=== PATIENT | female | born 1960 | race Caucasian/White ===

== ENCOUNTER → 2016-03-27 | Outpatient (CLI) | payer OTHER ==
[~2016-03-27] MED LIST: /ADVA50050 IN; /DULO30CA OR; /TIOT18INH; /TIOT18INH INH; ADV250INH INH; ALLE25CA OR; AMBI10TA OR; AMBI10TA PO; ASTELIN; ATIV0.5T3 PO; Albuterol Inhaler INH; CELE20TA OR; CETI10TA OR; Colace PO; NAPR250T OR; OMEP40CA2 PO; PLAQ200T PO; PLAQUNIL; PREG100CA OR; PREG50CA; PROV90AE; PROZ40CA; RANI75EL OR; SING10TA31 PO; TRAM50TA2 OR; TRAZ50TA OR; VICO5TAB OR; VICODINES TAB OR; ZANT150T OR; ZANT150T PO; plaquenil PO
--- NOTE | 2016-03-27 16:50 | REP ---
Chest two views HISTORY: Fatigue Comparison: 03/17/2015 The lungs are clear. The heart is normal in size. The pulmonary vasculature is normal in appearance. The bony structure is intact. IMPRESSION: No acute disease. Signed by Mc Mcgarry MD 03/27/2016 04:41 P
[2016-03-27 17:18] LABS: ALBUMIN 3.8 GM/DL (3.2-5.2); ALBUMIN/GLOBULIN RATIO 1.09 (1.00-1.93); ALKALINE PHOSPHATASE 133 U/L (45-117); ALT/SGPT 41 U/L (12-78); ANION GAP 8 MEQ/L (8-16); AST/SGOT 16 U/L (15-37); BILIRUBIN,TOTAL 0.4 MG/DL (0.2-1.0); BLOOD UREA NITROGEN 13 MG/DL (7-18); CALCIUM LEVEL 9.2 MG/DL (8.5-10.1); CARBON DIOXIDE LEVEL 24 MEQ/L (21-32); CHLORIDE LEVEL 110 MEQ/L (98-107); CHOLESTEROL LEVEL 253 MG/DL (<200); CREATININE FOR GFR 0.81 MG/DL (0.55-1.02); GLOMERULAR FILTRATION RATE > 60.0 (>51); GLUCOSE, FASTING 88 MG/DL (70-105); POTASSIUM SERUM 4.1 MEQ/L (3.5-5.1); SODIUM LEVEL 142 MEQ/L (136-145); TOTAL PROTEIN 7.3 GM/DL (6.4-8.2); TRIGLYCERIDES LEVEL 250 MG/DL (<150)
[2016-03-27 18:13] LABS: MEAN CORPUSCULAR HEMOGLOBIN 28.3 pg (27.0-33.0); MEAN CORPUSCULAR HGB CONC 33.7 g/dl (32.0-36.5); MEAN CORPUSCULAR VOLUME 84.1 fl (80.0-96.0); WHITE BLOOD COUNT 9.2 K/mm3 (4.0-10.0)
--- NOTE | 2016-03-28 09:48 | ECGEPIP ---
Stationary ECG Study [facility] Test Date: 2016-03-27 Pat Name: JENNIFER HOLLY Department: Room: - Gender: F Associate Store Director: DREW : 1960 Requested By: Miroslava Ceja Order Number: [id number] Reading MD: John New Measurements Intervals [place] Rate: 69 P: 29 MT: 142 QRS: 45 QRSD: 89 T: 56 QT: 388 QTc: 416 Interpretive Statements SINUS RHYTHM NONSPECIFIC T-WAVE ABNORMALITY Similar to tracing from 03-17-15 Electronically Signed On 03-28-2016 9:47:58 EST by John New
== END ==
LOC: M LAB 15:45
PROVIDERS: ATTEND Family Medicine
DX: R51 Headache (principal); R53.83 Other fatigue; E03.9 Hypothyroidism, unspecified

== ENCOUNTER → 2016-04-04 | Outpatient (CLI) | payer OTHER ==
--- NOTE | 2016-04-04 11:39 | REP ---
MRI BRAIN WITHOUT AND WITH CONTRAST: HISTORY: Headache. CONTRAST: ProHance 13 mL. Areas of increased signal intensity on T2-weighted images are present in the periventricular and subcortical white matter. This represents small vessel ischemic disease. There is no intraparenchymal hemorrhage, infarct, mass or midline shift. There is no abnormal enhancement. The ventricular system and cortical sulci are dilated consistent with minimal volume loss. There is no extracerebral collection. Mucosal thickening is present in the left maxillary sinus. IMPRESSION: 1. Small vessel ischemic disease. 2. Minimal volume loss. Signed by Mc Mcgarry MD 04/04/2016 11:53 A
== END ==
LOC: M RAD 10:17
PROVIDERS: ATTEND Family Medicine
DX: R51 Headache (principal); R53.83 Other fatigue; E03.9 Hypothyroidism, unspecified; H53.8 Other visual disturbances
CPT/HCPCS: 70553; A9576

== ENCOUNTER 2016-04-15 15:51 | Emergency (ER) | payer OTHER ==
[2016-04-15] MEDS ORDERED: ONDANSETRON 4MG/2ML VIAL (J2405) As Ordered ONE ×2 (19:01→23:09)
[2016-04-15] MEDS ORDERED: HYDROmorphone HCL 1 MG/ML SYRINGE (J1170) As Ordered ONE ×2 (19:01→23:07)
[2016-04-15 19:31] LABS: BASO # 0.2 K/mm3 (0.0-0.2); BASO % 1.7 % (0.0-1.0); EOS # 0.1 K/mm3 (0.0-0.50); EOS % 1.2 % (0.0-3.0); LARGE UNSTAINED CELL # 0.2 K/mm3 (0.0-0.4); LARGE UNSTAINED CELL % 1.3 % (0.0-4.0); LYMPH # 2.4 K/mm3 (1.5-4.5); LYMPH % 18.9 % (24.0-44.0); MEAN CORPUSCULAR HEMOGLOBIN 28.5 pg (27.0-33.0); MEAN CORPUSCULAR HGB CONC 33.2 g/dl (32.0-36.5); MEAN CORPUSCULAR VOLUME 85.7 fl (80.0-96.0); MONO # 0.3 K/mm3 (0.0-0.8); MONO % 2.7 % (0.0-5.0); NEUTROPHILS # 8.9 K/mm3 (1.8-7.7); NEUTROPHILS % 74.1 % (36.0-66.0); PLATELET COUNT, AUTOMATED 278 k/mm3 (150-450)
[2016-04-15 20:20] LABS: ALBUMIN 4.1 GM/DL (3.2-5.2); ALBUMIN/GLOBULIN RATIO 1.08 (1.00-1.93); ALKALINE PHOSPHATASE 153 U/L (45-117); ALT/SGPT 87 U/L (12-78); ANION GAP 10 MEQ/L (8-16); AST/SGOT 29 U/L (15-37); BILIRUBIN,DIRECT < 0.1 MG/DL (0.0-0.2); BILIRUBIN,TOTAL 0.3 MG/DL (0.2-1.0); BLOOD UREA NITROGEN 17 MG/DL (7-18); CALCIUM LEVEL 9.7 MG/DL (8.5-10.1); CARBON DIOXIDE LEVEL 28 MEQ/L (21-32); CHLORIDE LEVEL 106 MEQ/L (98-107); CREATININE FOR GFR 0.91 MG/DL (0.55-1.02); GLOMERULAR FILTRATION RATE > 60.0 (>51); GLUCOSE, FASTING 121 MG/DL (70-105); POTASSIUM SERUM 3.8 MEQ/L (3.5-5.1); SODIUM LEVEL 144 MEQ/L (136-145); TOTAL PROTEIN 7.9 GM/DL (6.4-8.2)
[2016-04-15] MEDS ORDERED: ISOVUE-370 76% 100ML VIAL (Q9967) As Ordered ONE (21:57)
--- NOTE | 2016-04-15 22:30 | REPUSA ---
CT of the abdomen and pelvis with contrast Clinical statement: Pain. Technique: Multiple axial CT images were obtained from the base of the lungs through the floor of the pelvis utilizing 5 mm axial slices after administration of nonionic intravenous contrast. Coronal an d sagittal reconstructions were also obtained. Comparison: 03/22/2015. Findings: Chest: The visualized lung bases are clear. Abdomen: The liver, spleen, pancreas, kidneys, gallbladder, and adrenal glands are unremarkable. Ther e is a stable simple 1 cm cyst in the left kidney. The aorta is within normal limits. There is no oni dence of abdominal lymphadenopathy or ascites. Pelvis: The bowel is unremarkable, with no obstructive or inflammatory changes. The appendix is harvey l. The urinary bladder is within normal limits. The other pelvic structures appear grossly intact. Th ere is no evidence of pelvic lymphadenopathy or ascites. Bones: There are no suspicious osseous abnormalities seen. Impression: Unremarkable CT examination of the abdomen and pelvis.
--- NOTE | 2016-04-16 00:38 | EDDOCDS ---
Physician Documentation [facility] Name: Laquita Howe Age: 55 yrs Sex: Female : 1960 Arrival Date: 04/15/2016 Time: 15:51 Bed I2 / M2 Private MD: Miroslava Evans Disposition: 04/16 00:22 Critical Care: Critical care not applicable. le Disposition: 04/16/16 00:20 Discharged to Home/Self Care. Impression: Noninfective gastroenteritis and colitis, unspecified. - Condition is Stable. - Discharge Instructions: Food Choices to Help Relieve Diarrhea, Adult, Viral Gastroenteritis. - Prescriptions for ZOFRAN ODT 4 mg - dissolve 1 tablet by ORAL route 4 times per day As needed do not chew, do not swallow whole; 10 tablet. - Medication Reconciliation, Work Release Form - 3 day, Local Pharmacy Hours form. - Follow up: Miroslava Evans; When: Call to arrange an appointment; Reason: Recheck today's complaints, Continuance of care. - Problem is new. - Symptoms have improved. - Notes: Keep hydrated by sipping on fluids frequently Return to the ED for any further concerns Historical: - Allergies: PENICILLINS (Anaphylaxis); Codeine Sulfate (Vomit, Upset stomach); SULFA (SULFONAMIDES) (Rash); - Home Meds: 1. cetirizine 10 mg oral tab 1 tab once daily 2. Xanax 1 mg Oral tab three times a day 3. hydrocodone-acetaminophen 7.5-325 mg oral tab every 4-6 hours prn 4. simvastatin 20 mg Oral tab 1 tab once daily - PMHx: Anxiety; Chronic Back pain; Diverticulosis; GERD; - PSHx: ; Hysterectomy; - Social history: Smoking status: Patient uses tobacco products, current every day smoker. No barriers to communication noted, The patient speaks fluent [place], Speaks appropriately for age. - Family history: Not pertinent. - : The pt / caregiver states he / she is not on anticoagulants. Home medication list is obtained from the patient. - Exposure Risk Screening:: None identified. Vital Signs: 04/15 15:53 BP 133 / 76; Pulse 93; Resp 18 S; Temp 97.8(O); Pulse Ox 99% on R/A; Weight 65.77 kg / gr2 145 lbs (R); Height 5 ft. 3 in. (160.02 cm) (R); Pain 9/10; 20:02 BP 124 / 71; Pulse 72; Resp 18; Temp 98.8; Pulse Ox 98% ; Pain 7/10; ajs 20:33 BP 114 / 69; Pulse 70; Resp 16; cz 23:46 BP 123 / 67; Pulse 62; Resp 16; Pulse Ox 99% ; Pain 7/10; mlc 04/16 00:35 BP 111 / 66; Pulse 73; Resp 18; Temp 98.1; Pulse Ox 97% ; Pain 7/10; mlc 04/15 15:53 Body Mass Index 25.69 (65.77 kg, 160.02 cm) gr2 MDM: 04/15 18:13 [facility] [place] Agreement was scanned into [employer] and attached to record. gb 18:45 Financial registration complete. gb 18:50 NS 0.9% 1000 ml IV at bolus once ordered. le 18:50 NS 0.9% 1000 ml IV at 100 mL/hr continuous ordered. le 18:51 Ondansetron 4 mg IVP once ordered. le 18:51 IV Saline Lock ordered. le 18:51 Undress patient appropriately for examination ordered. le 18:51 Dilaudid - HYDROmorphone 0.5 mg IVP once ordered. le 18:52 Basic Metabolic Profile Ordered. EDMS 18:52 CBC with Diff Ordered. EDMS 18:52 Lipase Ordered. EDMS 18:52 Liver Profile Ordered. EDMS 18:52 Urinalysis Ordered. EDMS 18:52 NOTHING BY MOUTH+DIET ordered. EDMS 18:53 GASTROINTESTINAL (GI) PANEL Ordered. EDMS 19:43 CBC with Diff Reviewed. le 20:39 Basic Metabolic Profile Reviewed. le 20:39 Liver Profile Reviewed. le 20:39 Lipase Reviewed. le 20:41 CT ABD & PELVIS: IV Contrast Only Ordered. EDMS 23:02 Dilaudid - HYDROmorphone 0.5 mg IVP once ordered. le 23:03 CT ABD & PELVIS: IV Contrast Only Reviewed. le 23:03 Fluid Challenge ordered. le 23:04 Urinalysis Reviewed. le 23:07 Ondansetron 4 mg IVP once ordered. le 04/16 00:20 GASTROINTESTINAL (GI) PANEL Reviewed. le Administered Medications: 04/15 19:20 Drug: NS 0.9% 1000 ml [sodium chloride 0.9 % intravenous solution] Route: IV; Rate: cz bolus; Site: left forearm; 19:27 Drug: Ondansetron 4 mg Route: IVP; Site: left forearm; cz 19:29 Drug: Dilaudid - HYDROmorphone 0.5 mg [hydromorphone 1 mg/mL injection syringe (0.5 cz mL)] Route: IVP; Site: left antecubital; 20:42 Drug: NS 0.9% 1000 ml [sodium chloride 0.9 % intravenous solution] Route: IV; Rate: 100 cz mL/hr; Site: left forearm; 23:16 Drug: Dilaudid - HYDROmorphone 0.5 mg [hydromorphone 1 mg/mL injection syringe (0.5 mlc mL)] Route: IVP; Site: left antecubital; 23:46 Follow up: BP 123 / 67; Pulse 62 bpm; Resp 16 bpm; Pulse Ox 99% ; Pain 7/10 Adult mlc 23:16 Drug: Ondansetron 4 mg [ondansetron HCl 2 mg/mL intravenous solution (2 mL)] Route: mlc IVP; Site: left antecubital; 23:46 Follow up: Response: Nausea is decreased [facility] [place] Signatures: Dispatcher [employer] Zandra Armenta, Jelani Burris RN, RN RN cz Christina Denis, Reg Reg gb Yola Peters, GRIZZLYMAN GRIZZLYMAN Nneka Sen RN RN [facility] [place] The chart was reviewed and I authenticate all verbal orders and agree with the evaluation and treatment provided.Attachments: 18:13 [facility] Payment Agreement gb MTDD
--- NOTE | 2016-04-16 00:38 | EDDOCDS ---
Nurse's Notes [facility] Name: Laquita Howe Age: 55 yrs Sex: Female : 1960 Arrival Date: 04/15/2016 Time: 15:51 Bed I2 / M2 Private MD: Miroslava Evans Diagnosis: Noninfective gastroenteritis and colitis, unspecified Presentation: 04/15 15:55 Presenting complaint: Patient states: sick for 2 weeks with sinus infection. nausea srm vomiting and diarrhea for 38 hours. doesn't stop. now just throwing up bile. c/o low back pain when vomiting. Adult Sepsis Screening: The patient does not have new or worsening altered mentation. Patient's respiratory rate is less than 22. Systolic blood pressure is greater than 100. Patient has a qSOFA score of 0- Negative Sepsis Screen. Suicide/Homicide risk assessment- the patient denies having any suicidal and/or homicidal ideations and does not present with any other emotional, behavioral or mental health complaints. Status: Patient is not a produce service team member or dependent. Transition of care: patient was not received from another setting of care. 15:55 Acuity: EMMETT Level 3 srm 15:55 Method Of Arrival: Wheelchair srm 15:58 Presenting complaint: Patient states: pain down legs- sometimes they go numb. srm Triage Assessment: 15:58 General: Appears in no apparent distress, Behavior is appropriate for age, cooperative. srm Pain: Pain currently is 10 out of 10 on a pain scale. HIV screening NA for this visit Offered previously. Historical: - Allergies: PENICILLINS (Anaphylaxis); Codeine Sulfate (Vomit, Upset stomach); SULFA (SULFONAMIDES) (Rash); - Home Meds: 1. cetirizine 10 mg oral tab 1 tab once daily 2. Xanax 1 mg Oral tab three times a day 3. hydrocodone-acetaminophen 7.5-325 mg oral tab every 4-6 hours prn 4. simvastatin 20 mg Oral tab 1 tab once daily - PMHx: Anxiety; Chronic Back pain; Diverticulosis; GERD; - PSHx: ; Hysterectomy; - Social history: Smoking status: Patient uses tobacco products, current every day smoker. No barriers to communication noted, The patient speaks fluent Rwandan, Speaks appropriately for age. - Family history: Not pertinent. - : The pt / caregiver states he / she is not on anticoagulants. Home medication list is obtained from the patient. - Exposure Risk Screening:: None identified. Screenin:42 Screening information is obtained from the patient. Fall risk: No risks identified. cz Assistance ADL's: requires no assistance with activities of daily living. Abuse/DV Screen: The patient / caregiver reports he/she is: not in a situation that causes fear, pain or injury. Nutritional screening: No deficits noted. home support is adequate. 04/16 00:35 Advance Directives: There is no active DNR order. mlc Assessment: 04/15 19:42 General: Appears distressed, uncomfortable, Behavior is appropriate for age, cz cooperative. Pain: Location: back and abdomen Pain currently is 8 out of 10 on a pain scale. GI: No deficits noted. Abdomen is obese, Bowel sounds hypoactive in right upper quadrant, left upper quadrant, right lower quadrant and left lower quadrant Abd is soft Abd is tender to palpation in umbilical area, right lower quadrant and left lower quadrant. 20:04 Reassessment: pt states abdominal discomfort a "little" better no vomiting. cz 20:33 Reassessment: pt continues to rest quietly with no vomiting and complaints of stomach cz discomfort. Adult Sepsis Screening: The patient does not have new or worsening altered mentation. Patient's respiratory rate is less than 22. Systolic blood pressure is greater than 100. Patient has a qSOFA score of 0- Negative Sepsis Screen. 22:21 Reassessment: pt continues to complain of stomach discomfort with no vomiting or cz retching pt provided with mouth swabs for complaint of dry mouth. 23:13 General: Appears in no apparent distress. General: pt and family updated on plan of ttb care. . Neurological: Level of Consciousness is awake, alert. Respiratory: No deficits noted. Airway is patent. Derm: Skin is normal. 23:16 General: Appears in no apparent distress, comfortable, Behavior is cooperative. mlc General: IV fluids infusing per order. pt given water per order. pt eating popsicle . Pain: Location: mid back area, umbilical area, right upper quadrant and left upper quadrant Pain currently is 8 out of 10 on a pain scale. Neurological: Level of Consciousness is awake, alert, obeys commands, Oriented to person, place, time. Respiratory: Airway is patent Respiratory effort is even, unlabored, Respiratory pattern is regular. Derm: Skin is normal. 23:46 Reassessment: Patient appears in no apparent distress at this time. no significant mlc changes since prior. pt reports slight decrease in nausea and pain. pt c/o hiccups. pt tolerating fluids well. . 04/16 00:35 General: Appears in no apparent distress, comfortable, Behavior is cooperative. Pain: [facility] Pain currently is 7 out of 10 on a pain scale. Neurological: Level of Consciousness is awake, alert, Oriented to person, place, time. Respiratory: Airway is patent Respiratory effort is even, unlabored, Respiratory pattern is regular. Derm: Skin is normal. Vital Signs: 04/15 15:53 BP 133 / 76; Pulse 93; Resp 18 S; Temp 97.8(O); Pulse Ox 99% on R/A; Weight 65.77 kg gr2 (R); Height 5 ft. 3 in. (160.02 cm) (R); Pain 9/10; 20:02 BP 124 / 71; Pulse 72; Resp 18; Temp 98.8; Pulse Ox 98% ; Pain 7/10; ajs 20:33 BP 114 / 69; Pulse 70; Resp 16; cz 23:46 BP 123 / 67; Pulse 62; Resp 16; Pulse Ox 99% ; Pain 7/10; mlc 04/16 00:35 BP 111 / 66; Pulse 73; Resp 18; Temp 98.1; Pulse Ox 97% ; Pain 7/10; mlc 04/15 15:53 Body Mass Index 25.69 (65.77 kg, 160.02 cm) gr2 Vitals: 04/15 15:53 Log In Time: April 15, 2016 at 15:53. gr2 ED Course: 15:52 Patient visited by Catherine Edwards. gr2 15:52 Miroslava Evans is Private Physician. gr2 15:52 Patient moved to Waiting gr2 15:54 Patient moved to Pre RCE gr2 15:57 Triage Initiated srm 17:50 Patient moved to Triage 3 srm 18:12 Patient name changed from Laquita\\S\\K\\S\\Lyndaker\\S\\ to Laquita\\S\\Marion\\S\\Lyndaker. EDMS 18:13 [facility] Payment Agreement was scanned into [employer] and attached to record. gb 18:40 Yola Peters FNP [facility] le 18:44 Patient visited by Yola Peters FNP. le 18:44 Patient visited by Yola Peters FNP. le 18:57 Patient moved to / M2 [facility] 19:39 Patient visited by Jelani Orozco, JIGNESH. cz 19:40 Basic Metabolic Profile Sent. cz 19:40 Lipase Sent. cz 19:40 Liver Profile Sent. cz 19:42 The patient / caregiver is instructed regarding the plan of care and ED course. cz 19:42 Inserted saline lock: 20 gauge in left forearm. No procedures done that require cz assistance. Labs drawn. Sent per order to lab. 20:03 Patient visited by Sharron Rodriguez. ajs 20:33 Patient visited by Jelani Orozco, JIGNESH. cz 21:40 Patient visited by Jelani Orozco, JIGNESH. cz 22:19 Patient visited by Jelani Orozco RN. cz 22:20 Urinalysis Sent. cz 22:36 CT ABD & PELVIS: IV Contrast Only Returned. EDMS 23:14 Patient visited by Arminda Cuello RN. ttb 23:18 Patient visited by Nneka Ortiz,JIGNESH. mlc 23:47 Patient visited by Nneka Ortiz RN. mlc 04/16 00:20 Miroslava Evans is Referral Physician. le 00:35 Discontinued IV lock intact, bleeding controlled, pressure dressing applied, No mlc redness/swelling at site. Administered Medications: 04/15 19:20 Drug: NS 0.9% 1000 ml [sodium chloride 0.9 % intravenous solution] Route: IV; Rate: cz bolus; Site: left forearm; 19:27 Drug: Ondansetron 4 mg Route: IVP; Site: left forearm; cz 19:29 Drug: Dilaudid - HYDROmorphone 0.5 mg [hydromorphone 1 mg/mL injection syringe (0.5 cz mL)] Route: IVP; Site: left antecubital; 20:42 Drug: NS 0.9% 1000 ml [sodium chloride 0.9 % intravenous solution] Route: IV; Rate: 100 cz mL/hr; Site: left forearm; 23:16 Drug: Dilaudid - HYDROmorphone 0.5 mg [hydromorphone 1 mg/mL injection syringe (0.5 mlc mL)] Route: IVP; Site: left antecubital; 23:46 Follow up: BP 123 / 67; Pulse 62 bpm; Resp 16 bpm; Pulse Ox 99% ; Pain 7/10 Adult [facility] 23:16 Drug: Ondansetron 4 mg [ondansetron HCl 2 mg/mL intravenous solution (2 mL)] Route: mlc IVP; Site: left antecubital; 23:46 Follow up: Response: Nausea is decreased [facility] Order Results: Lab Order: Basic Metabolic Profile; SPEC'M 04/15/16 19:12 Test: GLUCOSE, FASTING; Value: 121; Range: 70-105; Abnormal: Above high normal; Units: MG/DL; Status: F Test: BLOOD UREA NITROGEN; Value: 17; Range: 7-18; Units: MG/DL; Status: F Test: CREATININE FOR GFR; Value: 0.91; Range: 0.55-1.02; Units: MG/DL; Status: F Test: GLOMERULAR FILTRATION RATE; Value: > 60.0; Range: >51; Status: F Test: SODIUM LEVEL; Value: 144; Range: 136-145; Units: MEQ/L; Status: F Test: POTASSIUM SERUM; Value: 3.8; Range: 3.5-5.1; Units: MEQ/L; Status: F Test: CHLORIDE LEVEL; Value: 106; Range: 98-107; Units: MEQ/L; Status: F Test: CARBON DIOXIDE LEVEL; Value: 28; Range: 21-32; Units: MEQ/L; Status: F Test: ANION GAP; Value: 10; Range: 8-16; Units: MEQ/L; Status: F Test: CALCIUM LEVEL; Value: 9.7; Range: 8.5-10.1; Units: MG/DL; Status: F Test Note: ; Units are mL/min/1.73 m2 Chronic Kidney Disease Staging per NKF: Stage I & II GFR >=60 Normal to Mildly Decreased Stage III GFR 30-59 Moderately Decreased Stage IV GFR 15-29 Severely Decreased Stage V GFR <15 Very Little GFR Left ESRD GFR <15 on HORSE IDENTIFIER Lab Order: CBC with Diff; SPEC'M 04/15/16 19:12 Test: WHITE BLOOD COUNT; Value: 12.0; Range: 4.0-10.0; Abnormal: Above high normal; Units: K/mm3; Status: F Test: RED BLOOD COUNT; Value: 5.81; Range: 4.00-5.40; Abnormal: Above high normal; Units: M/mm3; Status: F Test: HEMOGLOBIN; Value: 16.5; Range: 12.0-16.0; Abnormal: Above high normal; Units: g/dl; Status: F Test: HEMATOCRIT; Value: 49.8; Range: 36.0-47.0; Abnormal: Above high normal; Units: %; Status: F Test: MEAN CORPUSCULAR VOLUME; Value: 85.7; Range: 80.0-96.0; Units: fl; Status: F Test: MEAN CORPUSCULAR HEMOGLOBIN; Value: 28.5; Range: 27.0-33.0; Units: pg; Status: F Test: MEAN CORPUSCULAR HGB CONC; Value: 33.2; Range: 32.0-36.5; Units: g/dl; Status: F Test: RED CELL DISTRIBUTION WIDTH; Value: 14.0; Range: 11.5-14.5; Units: %; Status: F Test: PLATELET COUNT, AUTOMATED; Value: 278; Range: 150-450; Units: k/mm3; Status: F Test: NEUTROPHILS %; Value: 74.1; Range: 36.0-66.0; Abnormal: Above high normal; Units: %; Status: F Test: LYMPH %; Value: 18.9; Range: 24.0-44.0; Abnormal: Below low normal; Units: %; Status: F Test: MONO %; Value: 2.7; Range: 0.0-5.0; Units: %; Status: F Test: EOS %; Value: 1.2; Range: 0.0-3.0; Units: %; Status: F Test: BASO %; Value: 1.7; Range: 0.0-1.0; Abnormal: Above high normal; Units: %; Status: F Test: LARGE UNSTAINED CELL %; Value: 1.3; Range: 0.0-4.0; Units: %; Status: F Test: NEUTROPHILS #; Value: 8.9; Range: 1.8-7.7; Abnormal: Above high normal; Units: K/mm3; Status: F Test: LYMPH #; Value: 2.4; Range: 1.5-4.5; Units: K/mm3; Status: F Test: MONO #; Value: 0.3; Range: 0.0-0.8; Units: K/mm3; Status: F Test: EOS #; Value: 0.1; Range: 0.0-0.50; Units: K/mm3; Status: F Test: BASO #; Value: 0.2; Range: 0.0-0.2; Units: K/mm3; Status: F Test: LARGE UNSTAINED CELL #; Value: 0.2; Range: 0.0-0.4; Units: K/mm3; Status: F Lab Order: Lipase; [facility] 04/15/16 19:12 Test: LIPASE; Value: 287; Range: 73-393; Units: U/L; Status: F Lab Order: Liver Profile; [facility] 04/15/16 19:12 Test: AST/SGOT; Value: 29; Range: 15-37; Units: U/L; Status: F Test: ALT/SGPT; Value: 87; Range: 12-78; Abnormal: Above high normal; Units: U/L; Status: F Test: ALKALINE PHOSPHATASE; Value: 153; Range: 45-117; Abnormal: Above high normal; Units: U/L; Status: F Test: BILIRUBIN,TOTAL; Value: 0.3; Range: 0.2-1.0; Units: MG/DL; Status: F Test: BILIRUBIN,DIRECT; Value: < 0.1; Range: 0.0-0.2; Units: MG/DL; Status: F Test: TOTAL PROTEIN; Value: 7.9; Range: 6.4-8.2; Units: GM/DL; Status: F Test: ALBUMIN; Value: 4.1; Range: 3.2-5.2; Units: GM/DL; Status: F Test: ALBUMIN/GLOBULIN RATIO; Value: 1.08; Range: 1.00-1.93; Status: F Lab Order: Urinalysis; [facility] 04/15/16 22:15 Test: APPEARANCE, URINE; Value: HAZY; Range: CLEAR; Status: F Test: COLOR, URINE; Value: YELLOW; Range: YELLOW; Status: F Test: PH,URINE; Value: 5.0; Range: 5.0-9.0; Units: UNITS; Status: F Test: SPECIFIC GRAVITY URINE AUTO; Value: 1.032; Range: 1.002-1.035; Status: F Test: PROTEIN, URINE AUTO; Value: NEGATIVE; Range: NEGATIVE; Units: mg/dL; Status: F Test: GLUCOSE, URINE (UA) AUTO; Value: NEGATIVE; Range: NEGATIVE; Units: mg/dL; Status: F Test: KETONE, URINE AUTO; Value: TRACE; Range: NEGATIVE; Abnormal: Above high normal; Units: mg/dL; Status: F Test: UROBILINOGEN, URINE AUTO; Value: 0.2; Range: 0.0-2.0; Units: mg/dL; Status: F Test: BILIRUBIN, URINE AUTO; Value: NEGATIVE; Range: NEGATIVE; Status: F Test: NITRITE, URINE AUTO; Value: NEGATIVE; Range: NEGATIVE; Status: F Test: LEUKOCYTE ESTERASE, URINE AUTO; Value: NEGATIVE; Range: NEGATIVE; Status: F Test: BLOOD, URINE BLOOD; Value: NEGATIVE; Range: NEGATIVE; Status: F Test: WBC, URINE AUTO; Value: 2; Range: 0-3; Units: /HPF; Status: F Test: RBC, URINE AUTO; Value: 0; Range: 0-3; Units: /HPF; Status: F Test: BACTERIA, URINE AUTO; Value: 1+; Range: NEGATIVE; Abnormal: Above high normal; Status: F Test: SQUAMOUS EPITHELIAL CELL UR AU; Value: 4; Range: 0-6; Units: /HPF; Status: F Test: MUCUS, URINE; Value: LARGE; Range: NEGATIVE; Status: F Test: HYALINE CAST, URINE AUTO; Value: 2; Range: 0-1; Units: /LPF; Status: F Lab Order: GASTROINTESTINAL (GI) PANEL; SPEC'M 04/15/16 21:54 Test: GASTROINTESTINAL (GI) PANEL; Value: GI PANEL RESULT NEGATIVE by PCR; Status: F Test: GASTROINTESTINAL (GI) PANEL; Value: Comments:; Status: F Test Note: ; This Gastrointestinal PCR Panel detects the following bacteria, parasites and viruses: Campylobacter (jejuni, coli and upsaliensis), Clostridium difficile (toxin A/B), Plesiomonas shigelloides, Salmonella, Yersinia enterocolitica, Vibrio (parahaemolyticus, vulnificus and cholerae), Vibrio clolerae, Enteroaggregative E. coli (EAEC), Enteropathogenis E. coli (EPEC), Enterotoxigenic E. coli (ETEC) it/st, Shiga-like producing E. coli (STEC) stx1/stc2, E.coli O157, Shigella/Enteroinvasive E. coli (EIEC), Cryptosporidium, Cyclospora cayetanensis, Entamoeba histolytica, Giardia lamblia, Adenovirus F 40/41, Astrovirus, Norovirus GI/GII, Rotavirus A and Sapovirus (I, II, IV, V). Radiology Order: CT ABD & PELVIS: IV Contrast Only Test: CT ABD & PELVIS: IV Contrast Only REASON FOR EXAMINATION: Abdomen Pain; ; CT of the abdomen and pelvis with contrast; Clinical statement: Pain.; Technique: Multiple axial CT images were obtained from the base of the lungs through the floor of the; pelvis utilizing 5 mm axial slices after administration of nonionic intravenous contrast. Coronal an; d sagittal reconstructions were also obtained.; Comparison: 03/22/2015.; Findings:; Chest: The visualized lung bases are clear.; Abdomen: The liver, spleen, pancreas, kidneys, gallbladder, and adrenal glands are unremarkable. Ther; e is a stable simple 1 cm cyst in the left kidney. The aorta is within normal limits. There is no oni; dence of abdominal lymphadenopathy or ascites.; Pelvis: The bowel is unremarkable, with no obstructive or inflammatory changes. The appendix is harvey; l. The urinary bladder is within normal limits. The other pelvic structures appear grossly intact. Th; ere is no evidence of pelvic lymphadenopathy or ascites.; Bones: There are no suspicious osseous abnormalities seen.; Impression: Unremarkable CT examination of the abdomen and pelvis.; ; Outcome: 04/16 00:20 Discharge ordered by Provider. le 00:35 Discharge Assessment: Patient awake, alert and oriented x 3. No cognitive and/or mlc functional deficits noted. Patient verbalized understanding of disposition instructions. patient administered narcotics - yes. Pt provided with safe discharge. The following High Risk Discharge criteria are identified: None. Discharged to home via wheelchair, with family. Condition: good Condition: stable. Discharge instructions given to patient, Instructed on discharge instructions, follow up and referral plans. medication usage, Demonstrated understanding of instructions, medications, Pt was receptive of discharge instructions/ teaching. Prescriptions given X 1, Work note provided to patient. CT Study completed. Property sent home with patient. 00:37 Patient left the ED. mlc Signatures: Dispatcher [employer] EDMS Zandra Pozo, RN RN Jelani Lee, RN RN Christina So, Deric Reg gb Yola Peters, SEAFOOD SPECIALIST Sharron Benitez JaneRN RN Arminda Cash RN RN Catherine Sharif gr2 Nneka OrtizRN RN mlc MTDD
--- NOTE | 2016-04-18 01:38 | EDDOCDS ---
Physician Documentation [facility] Name: Laquita Howe Age: 55 yrs Sex: Female : 1960 Arrival Date: 04/15/2016 Time: 15:51 Bed I2 / M2 Private MD: Miroslava Evans Disposition: 04/16 00:22 Critical Care: Critical care not applicable. le Disposition: 04/16/16 00:20 Discharged to Home/Self Care. Impression: Noninfective gastroenteritis and colitis, unspecified. - Condition is Stable. - Discharge Instructions: Food Choices to Help Relieve Diarrhea, Adult, Viral Gastroenteritis. - Prescriptions for ZOFRAN ODT 4 mg - dissolve 1 tablet by ORAL route 4 times per day As needed do not chew, do not swallow whole; 10 tablet. - Medication Reconciliation, Work Release Form - 3 day, Local Pharmacy Hours form. - Follow up: Miroslava Evans; When: Call to arrange an appointment; Reason: Recheck today's complaints, Continuance of care. - Problem is new. - Symptoms have improved. - Notes: Keep hydrated by sipping on fluids frequently Return to the ED for any further concerns Historical: - Allergies: PENICILLINS (Anaphylaxis); Codeine Sulfate (Vomit, Upset stomach); SULFA (SULFONAMIDES) (Rash); - Home Meds: 1. cetirizine 10 mg oral tab 1 tab once daily 2. Xanax 1 mg Oral tab three times a day 3. hydrocodone-acetaminophen 7.5-325 mg oral tab every 4-6 hours prn 4. simvastatin 20 mg Oral tab 1 tab once daily - PMHx: Anxiety; Chronic Back pain; Diverticulosis; GERD; - PSHx: ; Hysterectomy; - Social history: Smoking status: Patient uses tobacco products, current every day smoker. No barriers to communication noted, The patient speaks fluent Syrian, Speaks appropriately for age. - Family history: Not pertinent. - : The pt / caregiver states he / she is not on anticoagulants. Home medication list is obtained from the patient. - Exposure Risk Screening:: None identified. Vital Signs: 04/15 15:53 BP 133 / 76; Pulse 93; Resp 18 S; Temp 97.8(O); Pulse Ox 99% on R/A; Weight 65.77 kg / gr2 145 lbs (R); Height 5 ft. 3 in. (160.02 cm) (R); Pain 9/10; 20:02 BP 124 / 71; Pulse 72; Resp 18; Temp 98.8; Pulse Ox 98% ; Pain 7/10; ajs 20:33 BP 114 / 69; Pulse 70; Resp 16; cz 23:46 BP 123 / 67; Pulse 62; Resp 16; Pulse Ox 99% ; Pain 7/10; mlc 04/16 00:35 BP 111 / 66; Pulse 73; Resp 18; Temp 98.1; Pulse Ox 97% ; Pain 7/10; mlc 04/15 15:53 Body Mass Index 25.69 (65.77 kg, 160.02 cm) gr2 MDM: 04/15 18:13 [facility] Payment Agreement was scanned into [employer] and attached to record. gb 18:45 Financial registration complete. gb 18:50 NS 0.9% 1000 ml IV at bolus once ordered. le 18:50 NS 0.9% 1000 ml IV at 100 mL/hr continuous ordered. le 18:51 Ondansetron 4 mg IVP once ordered. le 18:51 IV Saline Lock ordered. le 18:51 Undress patient appropriately for examination ordered. le 18:51 Dilaudid - HYDROmorphone 0.5 mg IVP once ordered. le 18:52 Basic Metabolic Profile Ordered. EDMS 18:52 CBC with Diff Ordered. EDMS 18:52 Lipase Ordered. EDMS 18:52 Liver Profile Ordered. EDMS 18:52 Urinalysis Ordered. EDMS 18:52 NOTHING BY MOUTH+DIET ordered. EDMS 18:53 GASTROINTESTINAL (GI) PANEL Ordered. EDMS 19:43 CBC with Diff Reviewed. le 20:39 Basic Metabolic Profile Reviewed. le 20:39 Liver Profile Reviewed. le 20:39 Lipase Reviewed. le 20:41 CT ABD & PELVIS: IV Contrast Only Ordered. EDMS 23:02 Dilaudid - HYDROmorphone 0.5 mg IVP once ordered. le 23:03 CT ABD & PELVIS: IV Contrast Only Reviewed. le 23:03 Fluid Challenge ordered. le 23:04 Urinalysis Reviewed. le 23:07 Ondansetron 4 mg IVP once ordered. le 04/16 00:20 GASTROINTESTINAL (GI) PANEL Reviewed. le 11:43 T-Sheet-- Draft Copy was scanned into [employer] and attached to record. gb Administered Medications: 04/15 19:20 Drug: NS 0.9% 1000 ml [sodium chloride 0.9 % intravenous solution] Route: IV; Rate: cz bolus; Site: left forearm; 19:27 Drug: Ondansetron 4 mg Route: IVP; Site: left forearm; cz 19:29 Drug: Dilaudid - HYDROmorphone 0.5 mg [hydromorphone 1 mg/mL injection syringe (0.5 cz mL)] Route: IVP; Site: left antecubital; 20:42 Drug: NS 0.9% 1000 ml [sodium chloride 0.9 % intravenous solution] Route: IV; Rate: 100 cz mL/hr; Site: left forearm; 23:16 Drug: Dilaudid - HYDROmorphone 0.5 mg [hydromorphone 1 mg/mL injection syringe (0.5 mlc mL)] Route: IVP; Site: left antecubital; 23:46 Follow up: BP 123 / 67; Pulse 62 bpm; Resp 16 bpm; Pulse Ox 99% ; Pain 7/10 Adult mlc 23:16 Drug: Ondansetron 4 mg [ondansetron HCl 2 mg/mL intravenous solution (2 mL)] Route: mlc IVP; Site: left antecubital; 23:46 Follow up: Response: Nausea is decreased mlc Signatures: Dispatcher [employer] EDMS Zandra Pozo RN RN srm Zecher, Calvin, RN RN cz Christina Denis, Reg Reg Yola Barlow, STATION AGENT Nneka Najera RN RN [facility] The chart was reviewed and I authenticate all verbal orders and agree with the evaluation and treatment provided.Attachments: 18:13 [facility] Payment Agreement gb 04/16 11:43 T-Sheet-- Draft Copy gb Chart Complete MTDD
--- NOTE | 2016-04-18 01:38 | EDDOCDS ---
Nurse's Notes [facility] Name: Laquita Howe Age: 55 yrs Sex: Female : 1960 Arrival Date: 04/15/2016 Time: 15:51 Bed I2 / M2 Private MD: Miroslava Evans Diagnosis: Noninfective gastroenteritis and colitis, unspecified Presentation: 04/15 15:55 Presenting complaint: Patient states: sick for 2 weeks with sinus infection. nausea srm vomiting and diarrhea for 38 hours. doesn't stop. now just throwing up bile. c/o low back pain when vomiting. Adult Sepsis Screening: The patient does not have new or worsening altered mentation. Patient's respiratory rate is less than 22. Systolic blood pressure is greater than 100. Patient has a qSOFA score of 0- Negative Sepsis Screen. Suicide/Homicide risk assessment- the patient denies having any suicidal and/or homicidal ideations and does not present with any other emotional, behavioral or mental health complaints. Status: Patient is not a custodial services manager or dependent. Transition of care: patient was not received from another setting of care. 15:55 Acuity: EMMETT Level 3 srm 15:55 Method Of Arrival: Wheelchair srm 15:58 Presenting complaint: Patient states: pain down legs- sometimes they go numb. srm Triage Assessment: 15:58 General: Appears in no apparent distress, Behavior is appropriate for age, cooperative. srm Pain: Pain currently is 10 out of 10 on a pain scale. HIV screening NA for this visit Offered previously. Historical: - Allergies: PENICILLINS (Anaphylaxis); Codeine Sulfate (Vomit, Upset stomach); SULFA (SULFONAMIDES) (Rash); - Home Meds: 1. cetirizine 10 mg oral tab 1 tab once daily 2. Xanax 1 mg Oral tab three times a day 3. hydrocodone-acetaminophen 7.5-325 mg oral tab every 4-6 hours prn 4. simvastatin 20 mg Oral tab 1 tab once daily - PMHx: Anxiety; Chronic Back pain; Diverticulosis; GERD; - PSHx: ; Hysterectomy; - Social history: Smoking status: Patient uses tobacco products, current every day smoker. No barriers to communication noted, The patient speaks fluent Salvadorean, Speaks appropriately for age. - Family history: Not pertinent. - : The pt / caregiver states he / she is not on anticoagulants. Home medication list is obtained from the patient. - Exposure Risk Screening:: None identified. Screenin:42 Screening information is obtained from the patient. Fall risk: No risks identified. cz Assistance ADL's: requires no assistance with activities of daily living. Abuse/DV Screen: The patient / caregiver reports he/she is: not in a situation that causes fear, pain or injury. Nutritional screening: No deficits noted. home support is adequate. 04/16 00:35 Advance Directives: There is no active DNR order. mlc Assessment: 04/15 19:42 General: Appears distressed, uncomfortable, Behavior is appropriate for age, cz cooperative. Pain: Location: back and abdomen Pain currently is 8 out of 10 on a pain scale. GI: No deficits noted. Abdomen is obese, Bowel sounds hypoactive in right upper quadrant, left upper quadrant, right lower quadrant and left lower quadrant Abd is soft Abd is tender to palpation in umbilical area, right lower quadrant and left lower quadrant. 20:04 Reassessment: pt states abdominal discomfort a "little" better no vomiting. cz 20:33 Reassessment: pt continues to rest quietly with no vomiting and complaints of stomach cz discomfort. Adult Sepsis Screening: The patient does not have new or worsening altered mentation. Patient's respiratory rate is less than 22. Systolic blood pressure is greater than 100. Patient has a qSOFA score of 0- Negative Sepsis Screen. 22:21 Reassessment: pt continues to complain of stomach discomfort with no vomiting or cz retching pt provided with mouth swabs for complaint of dry mouth. 23:13 General: Appears in no apparent distress. General: pt and family updated on plan of ttb care. . Neurological: Level of Consciousness is awake, alert. Respiratory: No deficits noted. Airway is patent. Derm: Skin is normal. 23:16 General: Appears in no apparent distress, comfortable, Behavior is cooperative. mlc General: IV fluids infusing per order. pt given water per order. pt eating popsicle . Pain: Location: mid back area, umbilical area, right upper quadrant and left upper quadrant Pain currently is 8 out of 10 on a pain scale. Neurological: Level of Consciousness is awake, alert, obeys commands, Oriented to person, place, time. Respiratory: Airway is patent Respiratory effort is even, unlabored, Respiratory pattern is regular. Derm: Skin is normal. 23:46 Reassessment: Patient appears in no apparent distress at this time. no significant mlc changes since prior. pt reports slight decrease in nausea and pain. pt c/o hiccups. pt tolerating fluids well. . 04/16 00:35 General: Appears in no apparent distress, comfortable, Behavior is cooperative. Pain: [facility] Pain currently is 7 out of 10 on a pain scale. Neurological: Level of Consciousness is awake, alert, Oriented to person, place, time. Respiratory: Airway is patent Respiratory effort is even, unlabored, Respiratory pattern is regular. Derm: Skin is normal. Vital Signs: 04/15 15:53 BP 133 / 76; Pulse 93; Resp 18 S; Temp 97.8(O); Pulse Ox 99% on R/A; Weight 65.77 kg gr2 (R); Height 5 ft. 3 in. (160.02 cm) (R); Pain 9/10; 20:02 BP 124 / 71; Pulse 72; Resp 18; Temp 98.8; Pulse Ox 98% ; Pain 7/10; ajs 20:33 BP 114 / 69; Pulse 70; Resp 16; cz 23:46 BP 123 / 67; Pulse 62; Resp 16; Pulse Ox 99% ; Pain 7/10; mlc 04/16 00:35 BP 111 / 66; Pulse 73; Resp 18; Temp 98.1; Pulse Ox 97% ; Pain 7/10; mlc 04/15 15:53 Body Mass Index 25.69 (65.77 kg, 160.02 cm) gr2 Vitals: 04/15 15:53 Log In Time: April 15, 2016 at 15:53. gr2 ED Course: 15:52 Patient visited by Catherine Edwards. gr2 15:52 Miroslava Evans is Private Physician. gr2 15:52 Patient moved to Waiting gr2 15:54 Patient moved to Pre RCE gr2 15:57 Triage Initiated srm 17:50 Patient moved to Triage 3 srm 18:12 Patient name changed from Laquita\\S\\K\\S\\Lyndaker\\S\\ to Laquita\\S\\Marion\\S\\Lyndaker. EDMS 18:13 [facility] Payment Agreement was scanned into [employer] and attached to record. gb 18:40 [facility] FNP [facility] le 18:44 Patient visited by Yola Peters FNP. le 18:44 Patient visited by Yola Peters FNP. le 18:57 Patient moved to / M2 [facility] 19:39 Patient visited by Jelani Orozco, JIGNESH. cz 19:40 Basic Metabolic Profile Sent. cz 19:40 Lipase Sent. cz 19:40 Liver Profile Sent. cz 19:42 The patient / caregiver is instructed regarding the plan of care and ED course. cz 19:42 Inserted saline lock: 20 gauge in left forearm. No procedures done that require cz assistance. Labs drawn. Sent per order to lab. 20:03 Patient visited by Sharron Rodriguez. ajs 20:33 Patient visited by Jelani Orozco, JIGNESH. cz 21:40 Patient visited by Jelani Orozco, JIGNESH. cz 22:19 Patient visited by Jelani Orozco, JIGNESH. cz 22:20 Urinalysis Sent. cz 22:36 CT ABD & PELVIS: IV Contrast Only Returned. EDMS 23:14 Patient visited by Arminda Cuello, JIGNESH. ttb 23:18 Patient visited by Nneka Ortiz,JIGNESH. mlc 23:47 Patient visited by Nneka Ortiz,JIGNESH. mlc 04/16 00:20 Miroslava Evans is Referral Physician. le 00:35 Discontinued IV lock intact, bleeding controlled, pressure dressing applied, No mlc redness/swelling at site. 11:43 T-Sheet-- Draft Copy was scanned into [employer] and attached to record. gb Administered Medications: 04/15 19:20 Drug: NS 0.9% 1000 ml [sodium chloride 0.9 % intravenous solution] Route: IV; Rate: cz bolus; Site: left forearm; 19:27 Drug: Ondansetron 4 mg Route: IVP; Site: left forearm; cz 19:29 Drug: Dilaudid - HYDROmorphone 0.5 mg [hydromorphone 1 mg/mL injection syringe (0.5 cz mL)] Route: IVP; Site: left antecubital; 20:42 Drug: NS 0.9% 1000 ml [sodium chloride 0.9 % intravenous solution] Route: IV; Rate: 100 cz mL/hr; Site: left forearm; 23:16 Drug: Dilaudid - HYDROmorphone 0.5 mg [hydromorphone 1 mg/mL injection syringe (0.5 mlc mL)] Route: IVP; Site: left antecubital; 23:46 Follow up: BP 123 / 67; Pulse 62 bpm; Resp 16 bpm; Pulse Ox 99% ; Pain 7/10 Adult [facility] 23:16 Drug: Ondansetron 4 mg [ondansetron HCl 2 mg/mL intravenous solution (2 mL)] Route: mlc IVP; Site: left antecubital; 23:46 Follow up: Response: Nausea is decreased [facility] Order Results: Lab Order: Basic Metabolic Profile; SPEC'M 04/15/16 19:12 Test: GLUCOSE, FASTING; Value: 121; Range: 70-105; Abnormal: Above high normal; Units: MG/DL; Status: F Test: BLOOD UREA NITROGEN; Value: 17; Range: 7-18; Units: MG/DL; Status: F Test: CREATININE FOR GFR; Value: 0.91; Range: 0.55-1.02; Units: MG/DL; Status: F Test: GLOMERULAR FILTRATION RATE; Value: > 60.0; Range: >51; Status: F Test: SODIUM LEVEL; Value: 144; Range: 136-145; Units: MEQ/L; Status: F Test: POTASSIUM SERUM; Value: 3.8; Range: 3.5-5.1; Units: MEQ/L; Status: F Test: CHLORIDE LEVEL; Value: 106; Range: 98-107; Units: MEQ/L; Status: F Test: CARBON DIOXIDE LEVEL; Value: 28; Range: 21-32; Units: MEQ/L; Status: F Test: ANION GAP; Value: 10; Range: 8-16; Units: MEQ/L; Status: F Test: CALCIUM LEVEL; Value: 9.7; Range: 8.5-10.1; Units: MG/DL; Status: F Test Note: ; Units are mL/min/1.73 m2 Chronic Kidney Disease Staging per NKF: Stage I & II GFR >=60 Normal to Mildly Decreased Stage III GFR 30-59 Moderately Decreased Stage IV GFR 15-29 Severely Decreased Stage V GFR <15 Very Little GFR Left ESRD GFR <15 on CHANGE CONSULTANT Lab Order: CBC with Diff; SPEC'M 04/15/16 19:12 Test: WHITE BLOOD COUNT; Value: 12.0; Range: 4.0-10.0; Abnormal: Above high normal; Units: K/mm3; Status: F Test: RED BLOOD COUNT; Value: 5.81; Range: 4.00-5.40; Abnormal: Above high normal; Units: M/mm3; Status: F Test: HEMOGLOBIN; Value: 16.5; Range: 12.0-16.0; Abnormal: Above high normal; Units: g/dl; Status: F Test: HEMATOCRIT; Value: 49.8; Range: 36.0-47.0; Abnormal: Above high normal; Units: %; Status: F Test: MEAN CORPUSCULAR VOLUME; Value: 85.7; Range: 80.0-96.0; Units: fl; Status: F Test: MEAN CORPUSCULAR HEMOGLOBIN; Value: 28.5; Range: 27.0-33.0; Units: pg; Status: F Test: MEAN CORPUSCULAR HGB CONC; Value: 33.2; Range: 32.0-36.5; Units: g/dl; Status: F Test: RED CELL DISTRIBUTION WIDTH; Value: 14.0; Range: 11.5-14.5; Units: %; Status: F Test: PLATELET COUNT, AUTOMATED; Value: 278; Range: 150-450; Units: k/mm3; Status: F Test: NEUTROPHILS %; Value: 74.1; Range: 36.0-66.0; Abnormal: Above high normal; Units: %; Status: F Test: LYMPH %; Value: 18.9; Range: 24.0-44.0; Abnormal: Below low normal; Units: %; Status: F Test: MONO %; Value: 2.7; Range: 0.0-5.0; Units: %; Status: F Test: EOS %; Value: 1.2; Range: 0.0-3.0; Units: %; Status: F Test: BASO %; Value: 1.7; Range: 0.0-1.0; Abnormal: Above high normal; Units: %; Status: F Test: LARGE UNSTAINED CELL %; Value: 1.3; Range: 0.0-4.0; Units: %; Status: F Test: NEUTROPHILS #; Value: 8.9; Range: 1.8-7.7; Abnormal: Above high normal; Units: K/mm3; Status: F Test: LYMPH #; Value: 2.4; Range: 1.5-4.5; Units: K/mm3; Status: F Test: MONO #; Value: 0.3; Range: 0.0-0.8; Units: K/mm3; Status: F Test: EOS #; Value: 0.1; Range: 0.0-0.50; Units: K/mm3; Status: F Test: BASO #; Value: 0.2; Range: 0.0-0.2; Units: K/mm3; Status: F Test: LARGE UNSTAINED CELL #; Value: 0.2; Range: 0.0-0.4; Units: K/mm3; Status: F Lab Order: Lipase; [facility] 04/15/16 19:12 Test: LIPASE; Value: 287; Range: 73-393; Units: U/L; Status: F Lab Order: Liver Profile; [facility] 04/15/16 19:12 Test: AST/SGOT; Value: 29; Range: 15-37; Units: U/L; Status: F Test: ALT/SGPT; Value: 87; Range: 12-78; Abnormal: Above high normal; Units: U/L; Status: F Test: ALKALINE PHOSPHATASE; Value: 153; Range: 45-117; Abnormal: Above high normal; Units: U/L; Status: F Test: BILIRUBIN,TOTAL; Value: 0.3; Range: 0.2-1.0; Units: MG/DL; Status: F Test: BILIRUBIN,DIRECT; Value: < 0.1; Range: 0.0-0.2; Units: MG/DL; Status: F Test: TOTAL PROTEIN; Value: 7.9; Range: 6.4-8.2; Units: GM/DL; Status: F Test: ALBUMIN; Value: 4.1; Range: 3.2-5.2; Units: GM/DL; Status: F Test: ALBUMIN/GLOBULIN RATIO; Value: 1.08; Range: 1.00-1.93; Status: F Lab Order: Urinalysis; [facility] 04/15/16 22:15 Test: APPEARANCE, URINE; Value: HAZY; Range: CLEAR; Status: F Test: COLOR, URINE; Value: YELLOW; Range: YELLOW; Status: F Test: PH,URINE; Value: 5.0; Range: 5.0-9.0; Units: UNITS; Status: F Test: SPECIFIC GRAVITY URINE AUTO; Value: 1.032; Range: 1.002-1.035; Status: F Test: PROTEIN, URINE AUTO; Value: NEGATIVE; Range: NEGATIVE; Units: mg/dL; Status: F Test: GLUCOSE, URINE (UA) AUTO; Value: NEGATIVE; Range: NEGATIVE; Units: mg/dL; Status: F Test: KETONE, URINE AUTO; Value: TRACE; Range: NEGATIVE; Abnormal: Above high normal; Units: mg/dL; Status: F Test: UROBILINOGEN, URINE AUTO; Value: 0.2; Range: 0.0-2.0; Units: mg/dL; Status: F Test: BILIRUBIN, URINE AUTO; Value: NEGATIVE; Range: NEGATIVE; Status: F Test: NITRITE, URINE AUTO; Value: NEGATIVE; Range: NEGATIVE; Status: F Test: LEUKOCYTE ESTERASE, URINE AUTO; Value: NEGATIVE; Range: NEGATIVE; Status: F Test: BLOOD, URINE BLOOD; Value: NEGATIVE; Range: NEGATIVE; Status: F Test: WBC, URINE AUTO; Value: 2; Range: 0-3; Units: /HPF; Status: F Test: RBC, URINE AUTO; Value: 0; Range: 0-3; Units: /HPF; Status: F Test: BACTERIA, URINE AUTO; Value: 1+; Range: NEGATIVE; Abnormal: Above high normal; Status: F Test: SQUAMOUS EPITHELIAL CELL UR AU; Value: 4; Range: 0-6; Units: /HPF; Status: F Test: MUCUS, URINE; Value: LARGE; Range: NEGATIVE; Status: F Test: HYALINE CAST, URINE AUTO; Value: 2; Range: 0-1; Units: /LPF; Status: F Lab Order: GASTROINTESTINAL (GI) PANEL; SPEC'M 04/15/16 21:54 Test: GASTROINTESTINAL (GI) PANEL; Value: GI PANEL RESULT NEGATIVE by PCR; Status: F Test: GASTROINTESTINAL (GI) PANEL; Value: Comments:; Status: F Test Note: ; This Gastrointestinal PCR Panel detects the following bacteria, parasites and viruses: Campylobacter (jejuni, coli and upsaliensis), Clostridium difficile (toxin A/B), Plesiomonas shigelloides, Salmonella, Yersinia enterocolitica, Vibrio (parahaemolyticus, vulnificus and cholerae), Vibrio clolerae, Enteroaggregative E. coli (EAEC), Enteropathogenis E. coli (EPEC), Enterotoxigenic E. coli (ETEC) it/st, Shiga-like producing E. coli (STEC) stx1/stc2, E.coli O157, Shigella/Enteroinvasive E. coli (EIEC), Cryptosporidium, Cyclospora cayetanensis, Entamoeba histolytica, Giardia lamblia, Adenovirus F 40/41, Astrovirus, Norovirus GI/GII, Rotavirus A and Sapovirus (I, II, IV, V). Radiology Order: CT ABD & PELVIS: IV Contrast Only Test: CT ABD & PELVIS: IV Contrast Only REASON FOR EXAMINATION: Abdomen Pain; ; CT of the abdomen and pelvis with contrast; Clinical statement: Pain.; Technique: Multiple axial CT images were obtained from the base of the lungs through the floor of the; pelvis utilizing 5 mm axial slices after administration of nonionic intravenous contrast. Coronal an; d sagittal reconstructions were also obtained.; Comparison: 03/22/2015.; Findings:; Chest: The visualized lung bases are clear.; Abdomen: The liver, spleen, pancreas, kidneys, gallbladder, and adrenal glands are unremarkable. Ther; e is a stable simple 1 cm cyst in the left kidney. The aorta is within normal limits. There is no oni; dence of abdominal lymphadenopathy or ascites.; Pelvis: The bowel is unremarkable, with no obstructive or inflammatory changes. The appendix is harvey; l. The urinary bladder is within normal limits. The other pelvic structures appear grossly intact. Th; ere is no evidence of pelvic lymphadenopathy or ascites.; Bones: There are no suspicious osseous abnormalities seen.; Impression: Unremarkable CT examination of the abdomen and pelvis.; ; Outcome: 04/16 00:20 Discharge ordered by Provider. le 00:35 Discharge Assessment: Patient awake, alert and oriented x 3. No cognitive and/or mlc functional deficits noted. Patient verbalized understanding of disposition instructions. patient administered narcotics - yes. Pt provided with safe discharge. The following High Risk Discharge criteria are identified: None. Discharged to home via wheelchair, with family. Condition: good Condition: stable. Discharge instructions given to patient, Instructed on discharge instructions, follow up and referral plans. medication usage, Demonstrated understanding of instructions, medications, Pt was receptive of discharge instructions/ teaching. Prescriptions given X 1, Work note provided to patient. CT Study completed. Property sent home with patient. 00:37 Patient left the ED. mlc Signatures: Dispatcher [employer] EDMS Zandra Pozo, RN RN Jelani Lee RN RN Christina So, Reg Reg gb Fran, Yola, PROCESSING INSPECTOR PROCESSING INSPECTOR Sharron Chavez JaneRN RN Arminda Cash RN RN Catherine Sharif 2 Nneka OrtizRN RN mlc Chart Complete LIZZETH
--- NOTE | 2016-04-18 01:38 | EDDOCDS ---
Physician Documentation [facility] Name: Laquita Howe Age: 55 yrs Sex: Female : 1960 Arrival Date: 04/15/2016 Time: 15:51 Bed I2 / M2 Private MD: Miroslava Evans Disposition: 04/16 00:22 Critical Care: Critical care not applicable. le Disposition: 04/16/16 00:20 Discharged to Home/Self Care. Impression: Noninfective gastroenteritis and colitis, unspecified. - Condition is Stable. - Discharge Instructions: Food Choices to Help Relieve Diarrhea, Adult, Viral Gastroenteritis. - Prescriptions for ZOFRAN ODT 4 mg - dissolve 1 tablet by ORAL route 4 times per day As needed do not chew, do not swallow whole; 10 tablet. - Medication Reconciliation, Work Release Form - 3 day, Local Pharmacy Hours form. - Follow up: Miroslava Evans; When: Call to arrange an appointment; Reason: Recheck today's complaints, Continuance of care. - Problem is new. - Symptoms have improved. - Notes: Keep hydrated by sipping on fluids frequently Return to the ED for any further concerns Historical: - Allergies: PENICILLINS (Anaphylaxis); Codeine Sulfate (Vomit, Upset stomach); SULFA (SULFONAMIDES) (Rash); - Home Meds: 1. cetirizine 10 mg oral tab 1 tab once daily 2. Xanax 1 mg Oral tab three times a day 3. hydrocodone-acetaminophen 7.5-325 mg oral tab every 4-6 hours prn 4. simvastatin 20 mg Oral tab 1 tab once daily - PMHx: Anxiety; Chronic Back pain; Diverticulosis; GERD; - PSHx: ; Hysterectomy; - Social history: Smoking status: Patient uses tobacco products, current every day smoker. No barriers to communication noted, The patient speaks fluent Angolan, Speaks appropriately for age. - Family history: Not pertinent. - : The pt / caregiver states he / she is not on anticoagulants. Home medication list is obtained from the patient. - Exposure Risk Screening:: None identified. Vital Signs: 04/15 15:53 BP 133 / 76; Pulse 93; Resp 18 S; Temp 97.8(O); Pulse Ox 99% on R/A; Weight 65.77 kg / gr2 145 lbs (R); Height 5 ft. 3 in. (160.02 cm) (R); Pain 9/10; 20:02 BP 124 / 71; Pulse 72; Resp 18; Temp 98.8; Pulse Ox 98% ; Pain 7/10; ajs 20:33 BP 114 / 69; Pulse 70; Resp 16; cz 23:46 BP 123 / 67; Pulse 62; Resp 16; Pulse Ox 99% ; Pain 7/10; mlc 04/16 00:35 BP 111 / 66; Pulse 73; Resp 18; Temp 98.1; Pulse Ox 97% ; Pain 7/10; mlc 04/15 15:53 Body Mass Index 25.69 (65.77 kg, 160.02 cm) gr2 MDM: 04/15 18:13 [facility] Payment Agreement was scanned into [employer] and attached to record. gb 18:45 Financial registration complete. gb 18:50 NS 0.9% 1000 ml IV at bolus once ordered. le 18:50 NS 0.9% 1000 ml IV at 100 mL/hr continuous ordered. le 18:51 Ondansetron 4 mg IVP once ordered. le 18:51 IV Saline Lock ordered. le 18:51 Undress patient appropriately for examination ordered. le 18:51 Dilaudid - HYDROmorphone 0.5 mg IVP once ordered. le 18:52 Basic Metabolic Profile Ordered. EDMS 18:52 CBC with Diff Ordered. EDMS 18:52 Lipase Ordered. EDMS 18:52 Liver Profile Ordered. EDMS 18:52 Urinalysis Ordered. EDMS 18:52 NOTHING BY MOUTH+DIET ordered. EDMS 18:53 GASTROINTESTINAL (GI) PANEL Ordered. EDMS 19:43 CBC with Diff Reviewed. le 20:39 Basic Metabolic Profile Reviewed. le 20:39 Liver Profile Reviewed. le 20:39 Lipase Reviewed. le 20:41 CT ABD & PELVIS: IV Contrast Only Ordered. EDMS 23:02 Dilaudid - HYDROmorphone 0.5 mg IVP once ordered. le 23:03 CT ABD & PELVIS: IV Contrast Only Reviewed. le 23:03 Fluid Challenge ordered. le 23:04 Urinalysis Reviewed. le 23:07 Ondansetron 4 mg IVP once ordered. le 04/16 00:20 GASTROINTESTINAL (GI) PANEL Reviewed. le 11:43 T-Sheet-- Draft Copy was scanned into [employer] and attached to record. gb Administered Medications: 04/15 19:20 Drug: NS 0.9% 1000 ml [sodium chloride 0.9 % intravenous solution] Route: IV; Rate: cz bolus; Site: left forearm; 19:27 Drug: Ondansetron 4 mg Route: IVP; Site: left forearm; cz 19:29 Drug: Dilaudid - HYDROmorphone 0.5 mg [hydromorphone 1 mg/mL injection syringe (0.5 cz mL)] Route: IVP; Site: left antecubital; 20:42 Drug: NS 0.9% 1000 ml [sodium chloride 0.9 % intravenous solution] Route: IV; Rate: 100 cz mL/hr; Site: left forearm; 23:16 Drug: Dilaudid - HYDROmorphone 0.5 mg [hydromorphone 1 mg/mL injection syringe (0.5 mlc mL)] Route: IVP; Site: left antecubital; 23:46 Follow up: BP 123 / 67; Pulse 62 bpm; Resp 16 bpm; Pulse Ox 99% ; Pain 7/10 Adult mlc 23:16 Drug: Ondansetron 4 mg [ondansetron HCl 2 mg/mL intravenous solution (2 mL)] Route: mlc IVP; Site: left antecubital; 23:46 Follow up: Response: Nausea is decreased mlc Signatures: Dispatcher [employer] EDMS Zandra Pozo RN RN srm Zecher, Calvin, RN RN cz Christina Denis, Reg Reg Yola Barlow, [employer] CH[employer] BEAMER Nneka Najera RN RN [facility] The chart was reviewed and I authenticate all verbal orders and agree with the evaluation and treatment provided.Attachments: 18:13 [facility] Payment Agreement gb 04/16 11:43 T-Sheet-- Draft Copy gb Chart Complete MTDD
== END 2016-04-16 00:37 | disposition home or self-care (01) ==
LOC: M ED 15:51
DX: A08.4 Viral intestinal infection, unspecified (principal); F41.9 Anxiety disorder, unspecified; M54.9 Dorsalgia, unspecified; K57.30 Diverticulosis of large intestine without perforation or abscess without bleeding; K21.9 Gastro-esophageal reflux disease without esophagitis; F17.210 Nicotine dependence, cigarettes, uncomplicated; Z79.899 Other long term (current) drug therapy; Z88.0 Allergy status to penicillin; Z88.5 Allergy status to narcotic agent; Z88.2 Allergy status to sulfonamides
CPT/HCPCS: 36415; 74177; 80048; 80076; 81001; 83690; 85025; 87507; 99284; J1170; J2405; Q9967

== ENCOUNTER → 2016-07-23 | Outpatient (CLI) | payer OTHER ==
--- NOTE | 2016-07-24 11:51 | REP ---
MRI lumbar spine without contrast: History: Lumbar disc degeneration. Low back pain, bilateral leg pain. Right side greater than left. Comparison MRI study is from May 03, 2011. Technique: Sagittal and axial T1 and T2-weighted scans are acquired in the usual fashion with and without fat saturation. Sequences include spin echo, turbo spin-echo, and STIR imaging sequences. MRI findings: Lumbar vertebral body heights are preserved. Alignment is normal. Cortical and medullary bone signal intensity are normal. Conus medullaris is normal in position and appearance unchanged at T12-L1. There is a small central disc protrusion at T12-L1 which appears to be a new finding. This effaces the ventral subarachnoid space but does not contact or compress the conus. At L1-L2, there is no significant abnormality. At L2-3, the previously noted broad-based moderate-sized central disc protrusion is much improved. There is annulus tear but there is only mild diffuse disc bulging visible today subtly indenting the ventral margin of the thecal sac. No central canal stenosis is seen. Mild right lateral disc bulging is seen. At L3-4, there is mild diffuse disc bulging including mild foraminal disc bulging bilaterally unchanged. No significant neural foraminal narrowing. At L4-5, there is annulus tear with diffuse broad-based disc bulging. There is facet and mild ligamentum flavum hypertrophy bilaterally at L4-5 and there is mild central canal narrowing at L4-5 due to these findings along with developmentally fairly small canal. Mid sagittal dimension of the thecal sac at L4-5 is 11.7 mm. There is minimal left-sided neural foraminal encroachment. At L5-S1, there is mild facet hypertrophy bilaterally. Mild diffuse disc bulging is seen without thecal sac compression. A 1.9 cm perineural cyst is seen in the sacral thecal sac unchanged from the comparison study. There are small renal cysts again noted also unchanged. Impression: Degenerative spondylosis changes. There is improvement at the L2-3 level where previously noted disc protrusion has essentially resolved. No other focal disc protrusion is seen. Disc bulging and facet osteoarthritis is noted as above. Signed by Antonio Mo MD 07/24/2016 01:00 P
== END ==
LOC: M RAD 17:26
PROVIDERS: ATTEND Physical Medicine & Rehabilitation
DX: M51.16 Intervertebral disc disorders with radiculopathy, lumbar region (principal); M47.896 Other spondylosis, lumbar region

== ENCOUNTER 2017-05-26 16:03 | Emergency (ER) | payer OTHER ==
[2017-05-26 16:55] LABS: BASO % 0.3 % (0.0-1.0); EOS # 0.2 10^3/uL (0.0-0.50); EOS % 1.5 % (0.0-3.0); HEMOGLOBIN 12.5 g/dl (12.0-16.0); IMMATURE GRANULOCYTE % 0.6 % (0-3.0); LYMPH # 3.9 10^3/uL (1.5-4.5); LYMPH % 39.6 % (24.0-44.0); MEAN CORPUSCULAR HEMOGLOBIN 28.8 pg (27.0-33.0); MEAN CORPUSCULAR HGB CONC 33.8 g/dl (32.0-36.5); MEAN CORPUSCULAR VOLUME 85.3 fl (80.0-96.0); MONO # 0.6 10^3/uL (0.0-0.8); MONO % 6.1 % (0.0-5.0); NEUTROPHILS # 5.1 10^3/uL (1.8-7.7); NEUTROPHILS % 51.9 % (36.0-66.0); PLATELET COUNT, AUTOMATED 279 10^3/uL (150-450); RED BLOOD COUNT 4.34 10^6/uL (4.00-5.40); RED CELL DISTRIBUTION WIDTH 13.9 % (11.5-14.5); WHITE BLOOD COUNT 9.9 10^3/uL (4.0-10.0)
[2017-05-26 16:59] LABS: INR 0.83; PROTHROMBIN TIME 11.5 SECONDS (12.4-14.5)
[2017-05-26 17:04] LABS: ALBUMIN 3.1 GM/DL (3.2-5.2); ALBUMIN/GLOBULIN RATIO 0.94 (1.00-1.93); ALKALINE PHOSPHATASE 127 U/L (45-117); ALT/SGPT 259 U/L (12-78); ANION GAP 8 MEQ/L (8-16); AST/SGOT 218 U/L (7-37); BILIRUBIN,DIRECT < 0.1 MG/DL (0.0-0.2); BILIRUBIN,TOTAL 0.3 MG/DL (0.2-1.0); BLOOD UREA NITROGEN 24 MG/DL (7-18); CALCIUM LEVEL 9.1 MG/DL (8.5-10.1); CARBON DIOXIDE LEVEL 28 MEQ/L (21-32); CHLORIDE LEVEL 106 MEQ/L (98-107); CPK CREATINE PHOSPHOKINASE 62 U/L (26-192); CREATININE FOR GFR 1.04 MG/DL (0.55-1.30); GLOMERULAR FILTRATION RATE 57.9 (>51); GLUCOSE, FASTING 96 MG/DL (70-100); LIPASE 194 U/L (73-393); MB/CK RELATIVE INDEX 1.61 (< OR =4); NT-PRO BNP 78 PG/ML (<125); POTASSIUM SERUM 4.6 MEQ/L (3.5-5.1); SODIUM LEVEL 142 MEQ/L (136-145); TOTAL PROTEIN 6.4 GM/DL (6.4-8.2); TROPONIN I < 0.02 NG/ML (< 0.10)
[2017-05-26] MEDS ORDERED: ACETAMINOPHEN 325 MG TAB As Ordered (17:41)
[2017-05-26] MEDS: ACETAMINOPHEN 325 MG TAB PO (17:50)
[2017-05-26] MEDS: MORPHINE 4 MG/ML 1ML VIAL (J2270) IV ×2 (17:58→20:10)
[2017-05-26] MEDS: ONDANSETRON 4MG/2ML VIAL (J2405) IV (17:58)
[2017-05-26] MEDS ORDERED: ISOVUE-370 76% 100ML VIAL (Q9967) As Ordered (18:13)
[2017-05-26 18:20] LABS: MAGNESIUM LEVEL 1.7 MG/DL (1.8-2.4)
[2017-05-26 22:53] LABS: CPK CREATINE PHOSPHOKINASE 34 U/L (26-192); MB/CK RELATIVE INDEX 2.94 (< OR =4); TROPONIN I < 0.02 NG/ML (< 0.10)
[2017-05-27 09:23] LABS: HEPATITIS B SURFACE ANTIGEN NEGATIVE (NEGATIVE)
[2017-05-27 09:51] LABS: HEPATITIS C VIRUS ABY INDEX 0.1 INDEX (<0.8)
[2017-05-27 09:51] LABS: HEPATITIS B CORE ANTIBODY IGM NEGATIVE (NEGATIVE)
[2017-05-27 09:53] LABS: HEPATITIS A ANTIBODY IGM NEGATIVE (NEGATIVE)
== END 2017-05-27 00:05 | disposition home or self-care (01) ==
LOC: M ED 05-27 00:05
DX: R07.9 Chest pain, unspecified (principal); R94.31 Abnormal electrocardiogram [ECG] [EKG]; E78.5 Hyperlipidemia, unspecified; M32.9 Systemic lupus erythematosus, unspecified; M06.9 Rheumatoid arthritis, unspecified; F17.200 Nicotine dependence, unspecified, uncomplicated; Z82.49 Family history of ischemic heart disease and other diseases of the circulatory system; Z79.82 Long term (current) use of aspirin; Z79.899 Other long term (current) drug therapy; Z88.5 Allergy status to narcotic agent; Z88.0 Allergy status to penicillin; Z88.2 Allergy status to sulfonamides
CPT/HCPCS: J2270

== ENCOUNTER → 2018-07-12 | Outpatient (CLI) | payer OTHER ==
[~2018-07-12] MED LIST changes: -/ADVA50050 IN; -/DULO30CA OR; -/TIOT18INH; -/TIOT18INH INH; +ADVA1AER2 IN; +ASPI81TA85 PO; +CYCL10TA PO; +CYMB1CAP5 OR; +E-Z-GAS II EFFERVESCENT PACKET (SODIUM BICARB./CITRIC ACID/SIMETHICONE) As Ordered ONE; +E-Z-HD 98% w/w 340GM SUSP BTL As Ordered ONE; +E-Z-PAQUE 96% w/w SUSP 176GM BTL As Ordered ONE; +SPIR1CAP; +SPIR1CAP INH; +XANA1TAB2 PO; +ZOCO20TA PO
[2018-07-12 08:43] LABS: HEMATOCRIT 39.8 % (36.0-47.0); HEMOGLOBIN 13.1 g/dl (12.0-15.5); MEAN CORPUSCULAR HEMOGLOBIN 28.5 pg (27.0-33.0); MEAN CORPUSCULAR HGB CONC 32.9 g/dl (32.0-36.5); MEAN CORPUSCULAR VOLUME 86.7 fl (80.0-96.0); PLATELET COUNT, AUTOMATED 262 10^3/uL (150-450); RED BLOOD COUNT 4.59 10^6/uL (4.00-5.40); WHITE BLOOD COUNT 8.2 10^3/uL (4.0-10.0)
[2018-07-12 09:17] LABS: ALBUMIN 3.4 GM/DL (3.2-5.2); ALT/SGPT 26 U/L (12-78); AMYLASE 40 U/L (25-115); BILIRUBIN,TOTAL 0.3 MG/DL (0.2-1.0); BLOOD UREA NITROGEN 15 MG/DL (7-18); CALCIUM LEVEL 8.1 MG/DL (8.5-10.1); CARBON DIOXIDE LEVEL 27 MEQ/L (21-32); CHLORIDE LEVEL 110 MEQ/L (98-107); CHOLESTEROL LEVEL 166 MG/DL (<200); CHOLESTEROL RISK RATIO 2.515 (<5); CREATININE FOR GFR 0.94 MG/DL (0.55-1.30); GLOMERULAR FILTRATION RATE > 60.0 (>51); GLUCOSE, FASTING 106 MG/DL (70-100); HDL CHOLESTEROL 66 MG/DL (>40); LDL CHOLESTEROL 76 MG/DL (<100); NON-HDL-C 100 MG/DL; POTASSIUM SERUM 3.3 MEQ/L (3.5-5.1); SODIUM LEVEL 143 MEQ/L (136-145); TOTAL PROTEIN 6.3 GM/DL (6.4-8.2); TRIGLYCERIDES LEVEL 118 MG/DL (<150)
[2018-07-12 10:32] LABS: HEMOGLOBIN A1c 5.8 %
--- NOTE | 2018-07-13 04:30 | REP ---
Clinical: Upper quadrant abdominal pain. Technique: Gregorio scale ultrasound using curved array transducer. Findings: The liver and pancreas are normal in contour, size, and echogenicity without focal hepatic or pancreatic lesions identified. Mild fatty infiltration to the liver cannot be excluded. The gallbladder suggests early adenomyomatosis without gallstones, wall thickening or pericholecystic fluid. No biliary ductal dilatation is appreciated, and the common bile duct measures 2.8 mm diameter. The right kidney is without hydronephrosis and measures 9.6 x 5.1 x 4.2 cm with upper pole cyst measuring 1.2 cm mid pole cyst measuring 1.6 cm. No ascites. Visualized portions of the abdominal aorta normal. Impression: 1. Mild fatty infiltration to the liver cannot be excluded. 2. Early adenomyomatosis of the gallbladder. 3. Two simple appearing right renal cysts. Electronically Signed by Braeden Murcia MD 07/13/2018 04:23 A
--- NOTE | 2018-07-14 09:28 | REP ---
Examination Requested: Upper G.I. Series With KUB Reason For Exam: abdomen pain Upper GI Air Contrast The procedure was performed by SANJIV Elkins, under the direct supervision of Dr. Gregorio. The images were reviewed with Dr. Gregorio. The tube test technician film shows normal organomegaly or pathological masses. The intestinal gas pattern appears normal. Liquid barium and gas producing crystals were given tissue in the erect position as well as liquid barium in the prone position in order to perform a double contrast upper GI examination. The oral and pharyngeal stages of deglutition were unremarkable. Esophageal transport is efficient and there is no esophagitis, stricture, or mucosal ring noted. There there is a small hiatal hernia. No gastroesophageal reflux was visualized throughout the course of the exam. The stomach aguilera are normally outlined. The rugal folds are smooth and regular. There is no gastritis, neoplasm, ulcer disease noted. The duodenal aguilera are normally outlined. The mucosal folds are smooth and regular. There is no duodenitis, pancreatitis, peptic ulcer disease, or neoplasm noted. The visualized portion of the proximal small bowel appears normal in course and caliber. Impression; 1. Small hiatal hernia. 1.2 minutes of fluoroscopy time was utilized for this procedure. Reviewed by SANJIV Preston 07/13/2018 09:26 A Electronically Signed by Meek Gregorio MD 07/14/2018 09:19 A
== END ==
LOC: M RAD 08:17
PROVIDERS: ATTEND Family Medicine
DX: R10.9 Unspecified abdominal pain (principal); K44.9 Diaphragmatic hernia without obstruction or gangrene

== ENCOUNTER → 2018-08-17 | Outpatient (REF) | payer OTHER ==
[~2018-08-17] MED LIST changes: -E-Z-GAS II EFFERVESCENT PACKET (SODIUM BICARB./CITRIC ACID/SIMETHICONE) As Ordered ONE; -E-Z-HD 98% w/w 340GM SUSP BTL As Ordered ONE; -E-Z-PAQUE 96% w/w SUSP 176GM BTL As Ordered ONE
[2018-08-17 13:15] LABS: BASO # 0.1 10^3/uL (0.0-0.2); EOS # 0.2 10^3/uL (0.0-0.50); EOS % 2.9 % (0.0-3.0); HEMATOCRIT 44.5 % (36.0-47.0); HEMOGLOBIN 14.4 g/dl (12.0-15.5); LYMPH # 2.7 10^3/uL (1.5-4.5); LYMPH % 37.5 % (24.0-44.0); MEAN CORPUSCULAR HGB CONC 32.4 g/dl (32.0-36.5); MEAN CORPUSCULAR VOLUME 86.4 fl (80.0-96.0); MONO # 0.5 10^3/uL (0.0-0.8); MONO % 6.2 % (0.0-5.0); NEUTROPHILS # 3.8 10^3/uL (1.8-7.7); NEUTROPHILS % 52.3 % (36.0-66.0); PLATELET COUNT, AUTOMATED 250 10^3/uL (150-450); RED BLOOD COUNT 5.15 10^6/uL (4.00-5.40); WHITE BLOOD COUNT 7.3 10^3/uL (4.0-10.0)
[2018-08-17 13:34] LABS: ALT/SGPT 51 U/L (12-78); BILIRUBIN,TOTAL 0.2 MG/DL (0.2-1.0); BLOOD UREA NITROGEN 13 MG/DL (7-18); CALCIUM LEVEL 9.8 MG/DL (8.5-10.1); CARBON DIOXIDE LEVEL 26 MEQ/L (21-32); CHLORIDE LEVEL 108 MEQ/L (98-107); COMPLEMENT C3 144 MG/DL (90-180); COMPLEMENT C4 40 MG/DL (10-40); CREATININE FOR GFR 0.94 MG/DL (0.55-1.30); GLOMERULAR FILTRATION RATE > 60.0 (>51); GLUCOSE, FASTING 92 MG/DL (70-100); POTASSIUM SERUM 4.2 MEQ/L (3.5-5.1); RHEUMATOID FACTOR QUANT < 10.0 IU/ML (<15.0); SODIUM LEVEL 141 MEQ/L (136-145); TOTAL PROTEIN 7.4 GM/DL (6.4-8.2)
[2018-08-17 13:42] LABS: ERYTHROCYTE SEDIMENTATION RATE 11 mm/hr (0-30)
[2018-08-20 15:46] LABS: ANA (HEP2) Positive (.); ANTI DS-DNA AB <1:10 titer (.); CYCLIC CITRULLINATED PEPTIDE 6 units (0-19); RNP ANTIBODY < 0.2 AI (0.0-0.9); SMITHS ANTIBODY < 0.2 AI (0.0-0.9); SSA SJOGRENS A 7.7 AI (0.0-0.9); SSB SJOGRENS B <0.2 AI (0.0-0.9)
== END ==
LOC: M SFHCPLAZ 10:57
PROVIDERS: ATTEND Internal Medicine Rheumatology
DX: M35.00 Sjogren syndrome, unspecified (principal); M32.9 Systemic lupus erythematosus, unspecified; M06.9 Rheumatoid arthritis, unspecified

== ENCOUNTER → 2018-09-06 | Outpatient (CLI) | payer OTHER ==
--- NOTE | 2018-09-06 14:55 | REP ---
Clinical: Knee pain. Technique: Single AP weightbearing view of the right and left knee. Findings: Bilateral knees appear symmetric and age appropriate. No significant osteoarthritic or inflammatory arthritic changes are appreciated. Impression: Age-appropriate symmetric knee radiographs. Electronically Signed by Braeden Murcia MD 09/06/2018 02:46 P
--- NOTE | 2018-09-06 14:55 | REP ---
Clinical: Pain extending to the left upper extremity. Technique: AP, lateral, flexion/extension, bilateral oblique and open mouth views of the cervical spine. Findings: Alignment and lordosis maintained. No acute fracture / compression injury or subluxation. Moderate multilevel degenerative disc osteophyte complexes are appreciated primarily involving C4-5 and C5-6. C1-C2 articulation and odontoid process appear normal. Neural foramen are patent. Impression: Moderate multilevel degenerative changes. Electronically Signed by Braeden Murcia MD 09/06/2018 02:46 P
== END ==
LOC: M RAD 14:11
PROVIDERS: ATTEND Internal Medicine Rheumatology
DX: M25.561 Pain in right knee (principal); M25.78 Osteophyte, vertebrae

== ENCOUNTER → 2018-09-06 | Outpatient (REF) | payer OTHER ==
[2018-09-06 14:46] LABS: APPEARANCE, URINE HAZY (CLEAR); BACTERIA, URINE AUTO 1+ (NEGATIVE); BILIRUBIN, URINE AUTO NEGATIVE (NEGATIVE); BLOOD, URINE BLOOD NEGATIVE (NEGATIVE); COLOR, URINE YELLOW (YELLOW); GLUCOSE, URINE (UA) AUTO NEGATIVE (NEGATIVE); KETONE, URINE AUTO NEGATIVE (NEGATIVE); LEUKOCYTE ESTERASE, URINE AUTO NEGATIVE (NEGATIVE); MUCUS, URINE SMALL (NEGATIVE); NITRITE, URINE AUTO NEGATIVE (NEGATIVE); PROTEIN, URINE AUTO NEGATIVE (NEGATIVE); RBC, URINE AUTO 1 /HPF (0-3); SQUAMOUS EPITHELIAL CELL UR AU 8 /HPF (0-6); UROBILINOGEN, URINE AUTO 0.2 mg/dL (0.0-2.0); WBC, URINE AUTO 3 /HPF (0-3)
[2018-09-06 15:05] LABS: TOTAL PROTEIN,RANDOM URINE 16.3 MG/DL (0.0-12.0)
== END ==
LOC: M LAB REF 14:12
PROVIDERS: ATTEND Internal Medicine Rheumatology
DX: M35.00 Sjogren syndrome, unspecified (principal)

== ENCOUNTER → 2018-09-07 | Outpatient (CLI) | payer OTHER ==
--- NOTE | 2018-09-07 14:16 | REP ---
Ultrasound of a palpable soft tissue medially in the right calf area: Ultrasonography of the palpable lump identifies a solid echogenic mass measuring 13.0 x 6 performed by 8.7 mm. This is well circumscribed. Doppler assessment there is no internal vascularity. Impression: The palpable lump corresponds to a solid mass, possibly a lipoma. Followup MRI or CT might be worthwhile to confirm lipoma. Electronically Signed by Meek Osborne MD 09/07/2018 02:07 P
== END ==
LOC: M RAD 12:50
PROVIDERS: ATTEND Physician Assistant
DX: R22.9 Localized swelling, mass and lump, unspecified (principal)

== ENCOUNTER 2018-10-25 05:21 | Inpatient (IN) | payer OTHER ==
[~2018-10-25] VITALS: Ht 160 cm; Wt 70.5 kg
[2018-10-25] MEDS: D5W/0.45% SODIUM CHLORIDE 1,000 ML IV SCH ×3 (02:00→12:29)
[2018-10-25] MEDS ORDERED: METOCLOPRAMIDE INJ 10MG/2ML VIAL (J2765) IV ONE (05:45)
[2018-10-25] MEDS ORDERED: MORPHINE 4 MG/ML 1ML VIAL/SYRINGE (J2270) IV ONE (06:00)
[2018-10-25] MEDS ORDERED: NS 1,000 ML IV ONE (06:00)
[2018-10-25 06:37] LABS: BASO % 0.6 % (0.0-1.0); EOS # 0.2 10^3/uL (0.0-0.50); EOS % 3.7 % (0.0-3.0); HEMATOCRIT 38.8 % (36.0-47.0); HEMOGLOBIN 12.6 g/dl (12.0-15.5); LYMPH # 1.9 10^3/uL (1.5-4.5); LYMPH % 36.1 % (24.0-44.0); MEAN CORPUSCULAR HGB CONC 32.5 g/dl (32.0-36.5); MEAN CORPUSCULAR VOLUME 86.2 fl (80.0-96.0); MONO # 0.3 10^3/uL (0.0-0.8); MONO % 6.6 % (0.0-5.0); NEUTROPHILS # 2.7 10^3/uL (1.8-7.7); NEUTROPHILS % 52.8 % (36.0-66.0); PLATELET COUNT, AUTOMATED 219 10^3/uL (150-450); WHITE BLOOD COUNT 5.1 10^3/uL (4.0-10.0)
[2018-10-25 07:01] LABS: ALBUMIN 3.2 GM/DL (3.2-5.2); ALT/SGPT 31 U/L (12-78); BILIRUBIN,DIRECT < 0.1 MG/DL (0.0-0.2); BILIRUBIN,TOTAL 0.3 MG/DL (0.2-1.0); BLOOD UREA NITROGEN 14 MG/DL (7-18); CALCIUM LEVEL 9.2 MG/DL (8.5-10.1); CARBON DIOXIDE LEVEL 24 MEQ/L (21-32); CHLORIDE LEVEL 110 MEQ/L (98-107); CREATININE FOR GFR 0.83 MG/DL (0.55-1.30); GLOMERULAR FILTRATION RATE > 60.0 (>51); GLUCOSE, FASTING 108 MG/DL (70-100); LIPASE 93 U/L (73-393); POTASSIUM SERUM 4.8 MEQ/L (3.5-5.1); SODIUM LEVEL 142 MEQ/L (136-145); TOTAL PROTEIN 6.6 GM/DL (6.4-8.2)
[2018-10-25] MEDS: GASTROGRAFIN SOLUTION 30ML PO SCH ×2 (07:38→08:19)
[2018-10-25] MEDS ORDERED: VITA500045 PO (07:41)
[2018-10-25] MEDS ORDERED: LEVO75TA4 PO (07:41)
[2018-10-25] MEDS ORDERED: SUCR1TAB56 PO (07:41)
[2018-10-25] MEDS ORDERED: VENTAER INH (07:41)
[2018-10-25] MEDS ORDERED: ONDA4TAB5 PO (07:41)
[2018-10-25] MEDS ORDERED: ISOVUE-370 76% 100ML VIAL (Q9967) As Ordered ONE (07:49)
[2018-10-25] MEDS ORDERED: KETOROLAC 30 MG/ML VIAL (J1885) IV ONE ×2 (09:45→22:45)
--- NOTE | 2018-10-25 10:15 | REP ---
REASON: Left lower quadrant pain. COMPARISON: 04/15/2016 CONTRAST: 100 mL Isovue 370. Bibasilar subsegmental atelectatic changes are present. There are no pleural or pericardial effusions. The liver, gallbladder, spleen, pancreas, adrenal glands, and kidneys are essentially unchanged and again seen within normal limits. There is a minimal stable left renal cyst. The abdominal aorta and para-aortic regions are within normal limits. Minimal faint infiltration is seen surrounding the distal descending colon representing a change from the prior exam. There is no free fluid or free air. There is no intra-abdominal mass or adenopathy. The appendix is unchanged and again seen within normal limits. There is, however, a tiny amount of fluid in the mesoappendix. CT PELVIS: There is no pelvic mass or adenopathy. The pelvis bowel loops are within normal limits. Bone window technique through the examination shows no significant appearance in the osseous structures. IMPRESSION: 1. There is evidence of mild, either early or resolving descending colon focal colitis/diverticulitis. Followup is suggested. 2. The appendix is of normal size and unchanged, in fact, when compared to 04/15/2016, however, there is a tiny amount of fluid in the mesoappendix which could potentially raise the question of early appendicitis. This needs to be correlated clinically with appropriate followup. Electronically Signed by Rory Hernandez DO 10/25/2018 12:26 P
[2018-10-25] MEDS ORDERED: ADV250INH INH (11:30)
[2018-10-25] MEDS ORDERED: RANI15TA PO (11:30)
[2018-10-25] MEDS ORDERED: GING1CAP PO (11:30)
[2018-10-25] MEDS ORDERED: HYDR-4514 PO (11:30)
[2018-10-25] MEDS ORDERED: CETI10TA4 PO (11:30)
[2018-10-25] MEDS ORDERED: SIMV20TA2 PO (11:30)
[2018-10-25] MEDS ORDERED: ECOT81TA5 PO (11:30)
[2018-10-25] MEDS ORDERED: RA T500C2 PO (11:30)
[2018-10-25] MEDS: CIPROFLOXACIN 400 MG in APPROPRIATE DILUENT 1 EA IV SCH ×3 (11:51→23:43)
[2018-10-25 13:00] VITALS: BP 112/60
[2018-10-25] MEDS: metroNIDAZOLE 500 MG in APPROPRIATE DILUENT 1 EA IV SCH ×2 (14:33→21:16)
[2018-10-25] MEDS ORDERED: ALBUTEROL 90 MCG/ACT 8GM HFA INHALER INH PRN (15:15)
[2018-10-25 17:15] VITALS: BP 103/58
[2018-10-25] MEDS ORDERED: NON-FORMULARY 1 EA EA INH SCH (21:00)
[2018-10-25] MEDS: CETIRIZINE (ZyrTEC) 10 MG TAB PO SCH (21:05)
[2018-10-25] MEDS: ALPRAZolam 0.5 MG TAB PO PRN (21:05)
[2018-10-25] MEDS: ASPIRIN 81 MG ENTERIC TAB PO SCH (21:05)
[2018-10-25] MEDS: SIMVASTATIN 20 MG TAB PO SCH (21:05)
[2018-10-25] MEDS: CYCLOBENZAPRINE 10 MG TAB PO PRN (21:16)
[2018-10-25] MEDS: ADVAIR HFA 115/21MCG INHALER INH SCH (21:50)
[2018-10-26] VITALS: BP 97/52
[2018-10-26] MEDS: LEVOTHYROXINE 75MCG TABLET (0.075MG) PO SCH (05:56)
[2018-10-26] MEDS: metroNIDAZOLE 500 MG in APPROPRIATE DILUENT 1 EA IV SCH ×3 (05:56→20:42)
[2018-10-26 07:07] LABS: BASO % 0.6 % (0.0-1.0); EOS # 0.2 10^3/uL (0.0-0.50); EOS % 3.5 % (0.0-3.0); HEMATOCRIT 37.6 % (36.0-47.0); HEMOGLOBIN 12.1 g/dl (12.0-15.5); MEAN CORPUSCULAR HEMOGLOBIN 28.8 pg (27.0-33.0); MEAN CORPUSCULAR HGB CONC 32.2 g/dl (32.0-36.5); MEAN CORPUSCULAR VOLUME 89.5 fl (80.0-96.0); MONO # 0.4 10^3/uL (0.0-0.8); MONO % 5.8 % (0.0-5.0); NEUTROPHILS # 3.7 10^3/uL (1.8-7.7); NEUTROPHILS % 57.8 % (36.0-66.0); PLATELET COUNT, AUTOMATED 210 10^3/uL (150-450); WHITE BLOOD COUNT 6.4 10^3/uL (4.0-10.0)
[2018-10-26 07:35] LABS: ALBUMIN 2.9 GM/DL (3.2-5.2); ALT/SGPT 25 U/L (12-78); BILIRUBIN,TOTAL 0.1 MG/DL (0.2-1.0); BLOOD UREA NITROGEN 10 MG/DL (7-18); CALCIUM LEVEL 8.1 MG/DL (8.5-10.1); CARBON DIOXIDE LEVEL 24 MEQ/L (21-32); CHLORIDE LEVEL 113 MEQ/L (98-107); CREATININE FOR GFR 0.85 MG/DL (0.55-1.30); GLOMERULAR FILTRATION RATE > 60.0 (>51); GLUCOSE, FASTING 126 MG/DL (70-100); POTASSIUM SERUM 3.5 MEQ/L (3.5-5.1); SODIUM LEVEL 144 MEQ/L (136-145); TOTAL PROTEIN 6.2 GM/DL (6.4-8.2)
[2018-10-26] MEDS: ADVAIR HFA 115/21MCG INHALER INH SCH ×2 (07:43→20:56)
[2018-10-26 08:00] VITALS: BP 110/64
[2018-10-26] MEDS ORDERED: BISACODYL 10 MG SUPP PR ONE (09:00)
--- NOTE | 2018-10-26 09:36 | HPE ---
DATE OF ADMISSION: 10/25/2018 CHIEF COMPLAINT: Abdominal pain, nausea. HISTORY OF PRESENT ILLNESS: This is a 58-year-old female who presented to the emergency room with stomachache that started 2 weeks ago. It has progressed on to become much more severe since Thursday with complaints of epigastric, left upper quadrant, left lower quadrant pain with radiation to the left shoulder without fever or chills, accompanied with anorexia. Episodes of nausea without vomiting and alleviated by six tablets of ibuprofen, two tablets throughout the day. The patient was at work on Thursday when she felt dizzy and felt that everything was spinning around her. She told her boss that her stomach was "killing me," and felt nauseous. She had not been eating anything. She was seen at her doctor's office and was given Zofran with no resolution of her nausea. She has had about a 5 to 10 pound weight loss since due to a decrease in appetite and fair eating and drinking. The patient says that she does not feel hungry and she is afraid that if she eats something that she is going to throw up. She denies any diarrhea, bloody stools. She does admit to feeling subjective fevers at home without any chills. Her children have noted that she was sweating with just walking around the house and doing nothing. She says "it is because I do not feel good." The patient describes the pain as achy and bothersome on and off, but has been much more constant since Thursday. She has noted a decrease in urine output, as well as very concentrated, dark yellow-orange urine for the past 3 days. Her last meal was Thursday. It was a sub at [facility]. Since then, she really has not eaten much. Prior evaluation was with a colonoscopy done by Dr. Leger and showed hyperplastic polyps. She had a prior episode of pancreatitis, thought to have been related to alcohol use in 2012. She has continued all of her home medications despite feeling unwell. In the emergency room, she was found to have colitis versus septic colitis. She has no right lower quadrant pain but CT of the abdomen and pelvis shows perhaps early appendicitis. CT was reviewed by on-call surgeon, Dr. Sosa, who felt that most of the pathology is in the descending colon, most likely due to diverticulitis. The patient has noted very bad constipation. Her last bowel movement was yesterday that was very hard with blood tinged stool, consistent with her previous history of hemorrhoids. The patient says that the abdominal pain is worse when she tries to eat a salad with oily dressing, but did well when she ate fish and macaroni and cheese. PAST MEDICAL HISTORY: 1. Hyperplastic polyps on previous colonoscopy with Dr. Leger. 2. Nonbleeding internal hemorrhoids, grade II internal hemorrhoids that prolapse that do bleed spontaneously. 3. Suicide attempt. 4. Major depressive disorder. 5. Generalized anxiety disorder. 6. Borderline narcissistic features. 7. Bronchial asthma. 8. Lupus erythematosus. 9. Pancreatitis. 10. Allergic rhinitis. 11. Sjogren's syndrome. 12. Fibromyalgia. 13. Chronic obstructive pulmonary disease (COPD), FEV1 2.26. 14. Irritable bowel syndrome. 15. Gastritis. 16. Duodenal ulcer. 17. Hypothyroidism. PAST SURGICAL HISTORY: 1. Colonoscopy. 2. Three sections in 1989, 1990, and 1983. 3. Two D and C's in 1991 and 1988. 4. Esophagogastroduodenoscopy (EGD) showing duodenal ulcer. HOME MEDICATIONS: Please see below. ALLERGIES: Please see below. SOCIAL HISTORY: The patient smokes cigarettes, less than one pack a day. Denies any recreational drug use. . 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 Started smoking at the age of 15. Has mixed drinks now and again. FAMILY HISTORY: Mother of colon cancer at the age of 63. Maternal grandfather of colon cancer. One sister with no medical problems. Maternal uncle of coronary artery disease, myocardial infarction. Father of myocardial infarction at age 72 and esophageal cancer. REVIEW OF SYSTEMS: As per history of present illness. 12-point system otherwise negative. PHYSICAL EXAMINATION: Temperature 97.2, pulse 70, respiratory rate 18, blood pressure 112/60, 100% on room air. GENERAL: The patient is awake, alert, oriented times three. Answering questions appropriately. Anicteric sclerae. No jaundice. No jugular venous distention (JVD), thyromegaly or cervical lymphadenopathy. LUNGS: Clear to auscultation with no wheezing, rales or rhonchi. HEART: S1, S2. Sinus rhythm. ABDOMEN: Soft and tender in the left upper quadrant, left lower quadrant and epigastric area with radiation to the left shoulder. No rebound or guarding. Positive bowel sounds. No hepatosplenomegaly. No aortic bruits noted. EXTREMITIES: No cyanosis, clubbing or any pitting edema. LABORATORY DATA: White count 5.1, hemoglobin 12.6, hematocrit 38.8, platelet count 219. Sodium 142, potassium 4.8, chloride 110, bicarbonate 24, BUN 14, creatinine 0.83, glucose 108, lactic acid 1.7, calcium 9.2, total bilirubin 0.3, direct bilirubin less than 0.1, AST 34, ALT 31, alkaline phosphatase 97, total protein 6.6, albumin 3.2, lipase 93. Blood culture pending. Urinalysis is pending. ASSESSMENT AND PLAN: This is a 58-year-old female with a history of anxiety, depression, narcissistic personality traits with suicide attempt in the past, pancreatitis, Sjogren's syndrome, lupus who presented to the emergency room with a 2-week history of stomachache, worsened since Thursday, and progressed with persistent nausea and pain. CURRENT ISSUES: 1. Colitis/diverticulitis. The patient will be kept nothing by mouth and IV fluids. Cipro and Flagyl have been given to complete a 7-day inpatient course. Advance diet as tolerated. CT of the abdomen and pelvis with general surgeon, Dr. Sosa, unlikely to be acute appendicitis. 2. History of asthma and chronic obstructive pulmonary disease (COPD) and active smoking. May resume home inhalers, nebulizer treatments every 4 hours and every 1 hour as needed. 3. Dyslipidemia. On chronic simvastatin. 4. Hypothyroidism. On levothyroxine 75 mcg daily. 5. Anxiety and depression with history of suicide attempt and history of narcissistic personality traits. Continue on Xanax. 6. Allergic rhinitis. Continue on Zyrtec. 7. Chronic pain and fibromyalgia. Continue on Flexeril. 8. Deep vein thrombosis (DVT) prophylaxis with compression stockings and Lovenox. MTDD
[2018-10-26] MEDS ORDERED: KETOROLAC 30 MG/ML VIAL (J1885) IV PRN (10:00)
[2018-10-26] MEDS: CYCLOBENZAPRINE 10 MG TAB PO PRN (10:11)
[2018-10-26] MEDS: ALPRAZolam 0.5 MG TAB PO PRN ×2 (10:11→20:47)
[2018-10-26] MEDS: CIPROFLOXACIN 400 MG in APPROPRIATE DILUENT 1 EA IV SCH ×2 (13:20→23:34)
[2018-10-26 16:00] VITALS: BP 114/70
--- NOTE | 2018-10-26 16:46 | IPNPDOC ---
Subjective Date Seen The patient was seen on 10/26/18. Subjective Chief Complaint/HPI Continues to complain of some abdominal cramps and soreness. Has not had a bowel movement in 2 days so feels distended says will feel better if she has a bowel movement . will give a dulcolax suppository. Objective Physical Examination General Exam: Positive: Alert, Cooperative, No Acute Distress Eye Exam: Positive: PERRLA, Conjunctiva & lids normal, EOMI; Negative: Sclera icteric ENT Exam: Positive: Atraumatic, Mucous membr. moist/pink, Pharynx Normal Neck Exam: Positive: Supple; Negative: JVD, thyromegaly Chest Exam: Positive: Clear to auscultation, Normal air movement Heart Exam: Positive: Rate Normal, Regular Rhythm, Normal S1, Normal S2; Negative: Murmurs, Rubs Abdomen Exam: Positive: Normal bowel sounds, Soft, Tenderness (to deep palpation); Negative: Hepatospenomegaly Extremity Exam: Positive: Normal pulses; Negative: Clubbing, Cyanosis, Edema Skin Exam: Positive: Nl turgor and temperature; Negative: Rash, Breakdown Assessment /Plan Assessment This is a 58-year-old female with a history of anxiety, depression, narcissistic personality traits with suicide attempt in the past, pancreatitis, Sjogren's syndrome, lupus who presented to the emergency room with a 2-week history of stomachache, worsened since Thursday, and progressed with persistent nausea and pain. Colitis/diverticulitis. improving. continue cipro and flagyl and toradol for pain control. advance diet as tolerated. Asthma and chronic obstructive pulmonary disease (COPD) and active smoking. May resume home inhalers advair and albuterol. Dyslipidemia. On chronic simvastatin. Hypothyroidism. On levothyroxine 75 mcg daily. Anxiety and depression with history of suicide attempt and history of narcissistic personality traits. Continue on Xanax. Allergic rhinitis. Continue on Zyrtec. Chronic pain and fibromyalgia. Continue on Flexeril. Plan/VTE VTE Prophylaxis Ordered?: Yes VS, I&O, 24H, Fishbone Vital Signs/I&O Vital Signs Date Time Temp Pulse Resp B/P (MAP) Pulse Ox O2 Delivery O2 Flow Rate FiO2 10/26/18 00:00 97.6 85 18 97/52 (67) 95 10/25/18 05:35 Room Air I&O- Last 24 Hours up to 6 AM 10/26/18 05:59 Intake Total 2000 ml Output Total 1950 ml Balance 50 ml Laboratory Data 24H LABS Laboratory Tests 2 10/26/18 06:48: Anion Gap 7L, Glomerular Filtration Rate > 60.0, Blood Urea Nitrogen 10, Creatinine 0.85, Sodium Level 144, Potassium Level 3.5#, Chloride Level 113H, Carbon Dioxide Level 24, Calcium Level 8.1L, Aspartate Amino Transf (AST/SGOT) 17, Alanine Aminotransferase (ALT/SGPT) 25, Alkaline Phosphatase 88, Total Bilirubin 0.1#L, Total Protein 6.2L, Albumin 2.9L, Albumin/Globulin Ratio 0.88L 10/26/18 06:52: Immature Granulocyte % (Auto) 0.3, White Blood Count 6.4, Red Blood Count 4.20, Hemoglobin 12.1, Hematocrit 37.6, Mean Corpuscular Volume 89.5, Mean Corpuscular Hemoglobin 28.8, Mean Corpuscular Hemoglobin Concent 32.2, Red Cell Distribution Width 13.8, Platelet Count 210, Neutrophils (%) (Auto) 57.8, Lymphocytes (%) (Auto) 32.0, Monocytes (%) (Auto) 5.8H, Eosinophils (%) (Auto) 3.5H, Basophils (%) (Auto) 0.6, Neutrophils # (Auto) 3.7, Lymphocytes # (Auto) 2.0, Monocytes # (Auto) 0.4, Eosinophils # (Auto) 0.2, Basophils # (Auto) 0.0, Nucleated Red Blood Cells % (auto) 0.0 CBC/BMP Laboratory Tests 10/26/18 06:48 Calcium Level 8.1 L, Aspartate Amino Transf (AST/SGOT) 17, Alanine Aminotransferase (ALT/SGPT) 25, Alkaline Phosphatase 88, Total Bilirubin 0.1 #L, Total Protein 6.2 L, Albumin 2.9 L 10/26/18 06:52 Red Blood Count 4.20, Mean Corpuscular Volume 89.5, Mean Corpuscular Hemoglobin 28.8, Mean Corpuscular Hemoglobin Concent 32.2, Red Cell Distribution Width 13.8, Neutrophils (%) (Auto) 57.8, Lymphocytes (%) (Auto) 32.0, Monocytes (%) (Auto) 5.8 H, Eosinophils (%) (Auto) 3.5 H, Basophils (%) (Auto) 0.6, Neutrophils # (Auto) 3.7, Lymphocytes # (Auto) 2.0, Monocytes # (Auto) 0.4, Eosinophils # (Auto) 0.2, Basophils # (Auto) 0.0 Microbiology Microbiology 10/25/18 Blood Culture - Preliminary, Resulted No growth after 24 hours . All specim... LEXI COSBY MD Oct 26, 2018 16:46
[2018-10-26 20:01] VITALS: BP 133/65
[2018-10-26] MEDS: CETIRIZINE (ZyrTEC) 10 MG TAB PO SCH (20:42)
[2018-10-26] MEDS: SIMVASTATIN 20 MG TAB PO SCH (20:42)
[2018-10-26] MEDS: ASPIRIN 81 MG ENTERIC TAB PO SCH (20:42)
[2018-10-26 23:36] VITALS: BP 122/70
[2018-10-27] MEDS: metroNIDAZOLE 500 MG in APPROPRIATE DILUENT 1 EA IV SCH (04:18)
[2018-10-27] MEDS: LEVOTHYROXINE 75MCG TABLET (0.075MG) PO SCH (05:24)
[2018-10-27 07:01] LABS: BASO % 0.5 % (0.0-1.0); EOS # 0.2 10^3/uL (0.0-0.50); HEMATOCRIT 33.1 % (36.0-47.0); HEMOGLOBIN 10.7 g/dl (12.0-15.5); LYMPH # 1.9 10^3/uL (1.5-4.5); LYMPH % 34.1 % (24.0-44.0); MEAN CORPUSCULAR HEMOGLOBIN 27.9 pg (27.0-33.0); MEAN CORPUSCULAR HGB CONC 32.3 g/dl (32.0-36.5); MEAN CORPUSCULAR VOLUME 86.4 fl (80.0-96.0); MONO # 0.4 10^3/uL (0.0-0.8); MONO % 6.5 % (0.0-5.0); NEUTROPHILS # 3.2 10^3/uL (1.8-7.7); NEUTROPHILS % 55.5 % (36.0-66.0); PLATELET COUNT, AUTOMATED 209 10^3/uL (150-450); RED BLOOD COUNT 3.83 10^6/uL (4.00-5.40); WHITE BLOOD COUNT 5.7 10^3/uL (4.0-10.0)
[2018-10-27 07:17] LABS: BLOOD UREA NITROGEN 12 MG/DL (7-18); CALCIUM LEVEL 8.6 MG/DL (8.5-10.1); CARBON DIOXIDE LEVEL 24 MEQ/L (21-32); CHLORIDE LEVEL 114 MEQ/L (98-107); CREATININE FOR GFR 0.92 MG/DL (0.55-1.30); GLOMERULAR FILTRATION RATE > 60.0 (>51); GLUCOSE, FASTING 124 MG/DL (70-100); POTASSIUM SERUM 3.7 MEQ/L (3.5-5.1); SODIUM LEVEL 144 MEQ/L (136-145)
[2018-10-27] MEDS ORDERED: CIPR-249 PO (07:57)
[2018-10-27] MEDS ORDERED: FLAG500T PO (07:57)
[2018-10-27 08:15] VITALS: BP 126/63
[2018-10-27] MEDS: ADVAIR HFA 115/21MCG INHALER INH SCH (08:21)
[2018-10-27] MEDS ORDERED: BISACODYL 10 MG SUPP PR PRN (09:00)
--- NOTE | 2018-10-27 12:19 | DS.PDOC ---
Discharge Summary General Date of Admission Oct 25, 2018 at 11:19 Date of Discharge 10/27/18 Discharge Summary PROCEDURES PERFORMED DURING STAY: [None]. DISCHARGE DIAGNOSES: Acute Colitis or diverticulitis inteh descending colon. Asthma COPD Smoker Anxiety Depression with suicidal attempt in sánchez past. Fibromyalgia Dyslipidemia Hypothyroid Narcissistic Personality disorder. COMPLICATIONS/CHIEF COMPLAINT: Diverticulitis. HISTORY OF PRESENT ILLNESS: Please see history and physical HOSPITAL COURSE: This is a 58-year-old female with a history of anxiety, depression, narcissistic personality traits with suicide attempt in the past, pancreatitis, Sjogren's syndrome, lupus who presented to the emergency room with a 2-week history of stomachache, worsened since Thursday, and progressed with persistent nausea and pain. She was found to have Colitis/ diverticulitis in CT abdomen and pelvis. Colitis/diverticulitis. improving. continue cipro and flagyl tolerating low residue diet. Asthma and chronic obstructive pulmonary disease (COPD) and active smoking. May resume home inhalers advair and albuterol. Dyslipidemia. On chronic simvastatin. Hypothyroidism. On levothyroxine 75 mcg daily. Anxiety and depression with history of suicide attempt and history of narcissistic personality traits. Continue on Xanax. Allergic rhinitis. Continue on Zyrtec. Chronic pain and fibromyalgia. Continue on Flexeril. DISCHARGE MEDICATIONS: Please see below. ALLERGIES: Please see below. PHYSICAL EXAMINATION ON DISCHARGE: VITAL SIGNS: Please see below. General Exam: Positive: Alert, Cooperative, No Acute Distress Eye Exam: Positive: PERRLA, Conjunctiva & lids normal, EOMI; Negative: Sclera icteric ENT Exam: Positive: Atraumatic, Mucous membr. moist/pink, Pharynx Normal Neck Exam: Positive: Supple; Negative: JVD, thyromegaly Chest Exam: Positive: Clear to auscultation, Normal air movement Heart Exam: Positive: Rate Normal, Regular Rhythm, Normal S1, Normal S2; Negative: Murmurs, Rubs Abdomen Exam: Positive: Normal bowel sounds, Soft, Tenderness (to deep pal pation); Negative: Hepatospenomegaly Extremity Exam: Positive: Normal pulses; Negative: Clubbing, Cyanosis, Edema Skin Exam: Positive: Nl turgor and temperature; Negative: Rash, Breakdown LABORATORY DATA: Please see below. ACTIVITY: [As tolerated]. DIET: As tolerated. DISPOSITION: Home DISCHARGE INSTRUCTIONS: Follow up with PMD in 1 to 2 weeks DISCHARGE CONDITION: [Stable]. TIME SPENT ON DISCHARGE: 35 minutes. Vital Signs/I&Os Vital Signs Date Time Temp Pulse Resp B/P (MAP) Pulse Ox O2 Delivery O2 Flow Rate FiO2 10/27/18 08:15 98.3 89 18 126/63 (84) 97 10/25/18 05:35 Room Air I&O- Last 24 Hours up to 6 AM 10/27/18 05:59 Intake Total 2800 ml Output Total 1420 ml Balance 1380 ml Laboratory Data Labs 24H Laboratory Tests 2 10/27/18 06:15: Immature Granulocyte % (Auto) 0.4, White Blood Count 5.7, Red Blood Count 3.83L, Hemoglobin 10.7L, Hematocrit 33.1L, Mean Corpuscular Volume 86.4, Mean Corpuscular Hemoglobin 27.9, Mean Corpuscular Hemoglobin Concent 32.3, Red Cell Distribution Width 13.8, Platelet Count 209, Neutrophils (%) (Auto) 55.5, Lymphocytes (%) (Auto) 34.1, Monocytes (%) (Auto) 6.5H, Eosinophils (%) (Auto) 3.0, Basophils (%) (Auto) 0.5, Neutrophils # (Auto) 3.2, Lymphocytes # (Auto) 1.9, Monocytes # (Auto) 0.4, Eosinophils # (Auto) 0.2, Basophils # (Auto) 0.0, Nucleated Red Blood Cells % (auto) 0.0, Anion Gap 6L, Glomerular Filtration Rate > 60.0, Blood Urea Nitrogen 12, Creatinine 0.92, Sodium Level 144, Potassium Level 3.7, Chloride Level 114H, Carbon Dioxide Level 24, Calcium Level 8.6 CBC/BMP Laboratory Tests 10/27/18 06:15 Red Blood Count 3.83 L, Mean Corpuscular Volume 86.4, Mean Corpuscular Hemoglobin 27.9, Mean Corpuscular Hemoglobin Concent 32.3, Red Cell Distribution Width 13.8, Neutrophils (%) (Auto) 55.5, Lymphocytes (%) (Auto) 34.1, Monocytes (%) (Auto) 6.5 H, Eosinophils (%) (Auto) 3.0, Basophils (%) (Auto) 0.5, Neutrophils # (Auto) 3.2, Lymphocytes # (Auto) 1.9, Monocytes # (Auto) 0.4, Eosinophils # (Auto) 0.2, Basophils # (Auto) 0.0, Calcium Level 8.6 Microbiology Microbiology 10/25/18 Blood Culture - Preliminary, Resulted No Growth after 48 hours. All Specime... Discharge Medications Scheduled Aspirin (Ecotrin) 81 Mg Tablet.dr, 81 MG PO QHS, (Reported) Cetirizine HCl (Cetirizine HCl) 10 Mg Tablet, 10 MG PO QHS, (Reported) Ciprofloxacin HCl (Cipro) 500 Mg Tablet, 1 TAB PO BID Ergocalciferol (Vitamin D2) (Vitamin D2) 50,000 Unit Capsule, 50,000 UNITS PO QWEEK, (Reported) THURSDAY Ainsley Root (Ainsley Root) 550 Mg Capsule, 550 MG PO QHS, (Reported) Levothyroxine Sodium (Levothyroxine Sodium) 75 Mcg Tablet, 75 MCG PO DAILY, (Reported) Metronidazole (Flagyl) 500 Mg Tablet, 500 MG PO TID Ranitidine Hcl (Ranitidine HCl) 150 Mg Tablet, 1 TAB PO BID, (Reported) Simvastatin (Simvastatin) 20 Mg Tablet, 20 MG PO QHS, (Reported) Sucralfate (Sucralfate) 1 Gm Tablet, 1 GM PO TID, (Reported) Turmeric Root Extract (Turmeric) 500 Mg Capsule, 500 MG PO QHS, (Reported) Scheduled PRN Albuterol Sulfate (Ventolin Hfa) 18 Gm Hfa.aer.ad, 2 PUFF INH QID PRN for SHORTNESS OF BREATH, (Reported) Alprazolam (Xanax) 1 Mg Tab, 1 MG PO TID PRN for ANXIETY, (Reported) Cyclobenzaprine HCl (Cyclobenzaprine HCl) 10 Mg Tab, 10 MG PO TID PRN for MUSCLE SPASMS, (Reported) Hydrocodone/Acetaminophen (Hydrocodone-Acetamin 7.5-325) 1 Each Tablet, 0.5 TAB PO BID PRN for PAIN, (Reported) Ondansetron HCl (Ondansetron HCl) 4 Mg Tablet, 4 MG PO TID PRN for NAUSEA OR VOMITING, (Reported) Allergies Coded Allergies: Penicillins (Verified Allergy, Unknown, 10/25/18) Sulfa (Sulfonamide Antibiotics) (Verified Allergy, Unknown, 10/25/18) codeine (Verified Allergy, Unknown, 10/25/18) LEXI COSBY MD Oct 27, 2018 12:19
== END 2018-10-27 10:45 | disposition home or self-care (01) | DRG 244 ==
LOC: M ED 05:21 → M ED INP 11:19 → M PED 12:55
PROVIDERS: ADMIT General Practice; ATTEND Internal Medicine Nephrology
DX: K57.32 Diverticulitis of large intestine without perforation or abscess without bleeding (principal); F32.9 Major depressive disorder, single episode, unspecified; J45.909 Unspecified asthma, uncomplicated; E78.5 Hyperlipidemia, unspecified; E03.9 Hypothyroidism, unspecified; F17.210 Nicotine dependence, cigarettes, uncomplicated; F41.1 Generalized anxiety disorder; M79.7 Fibromyalgia; F60.81 Narcissistic personality disorder; Z79.82 Long term (current) use of aspirin; Z79.899 Other long term (current) drug therapy; Z88.0 Allergy status to penicillin; Z88.5 Allergy status to narcotic agent; Z88.2 Allergy status to sulfonamides; K52.9 Noninfective gastroenteritis and colitis, unspecified

== ENCOUNTER 2018-12-30 19:13 | Emergency (ER) | payer OTHER ==
[~2018-12-30] VITALS: Ht 160 cm; Wt 68.2 kg
[~2018-12-30 19:13] MED LIST changes: +CETI10TA4 PO; +CIPR-249 PO; +ECOT81TA5 PO; +FLAG500T PO; +GING1CAP PO; +HYDR-4514 PO; +LEVO75TA4 PO; +ONDA4TAB5 PO; +RA T500C2 PO; +RANI15TA PO; +SIMV20TA2 PO; +SUCR1TAB56 PO; +VENTAER INH; +VITA500045 PO
[2018-12-30] MEDS ORDERED: DICY20TA11 PO (19:35)
[2018-12-30] MEDS ORDERED: PROBCAP14 PO (19:35)
[2018-12-30 19:48] LABS: BASO # 0.1 10^3/uL (0.0-0.2); BASO % 0.9 % (0.0-1.0); EOS # 0.1 10^3/uL (0.0-0.5); EOS % 1.4 % (0.0-3.0); HEMOGLOBIN 13.9 g/dl (12.0-15.5); LYMPH # 3.8 10^3/uL (1.5-5.0); MEAN CORPUSCULAR HEMOGLOBIN 28.6 pg (27.0-33.0); MEAN CORPUSCULAR HGB CONC 33.1 g/dl (32.0-36.5); MEAN CORPUSCULAR VOLUME 86.4 fl (80.0-96.0); MONO # 0.5 10^3/uL (0.0-0.8); MONO % 5.8 % (0.0-5.0); NEUTROPHILS # 3.3 10^3/uL (1.5-8.5); NEUTROPHILS % 42.8 % (36.0-66.0); PLATELET COUNT, AUTOMATED 240 10^3/uL (150-450); RED BLOOD COUNT 4.86 10^6/uL (4.00-5.40); WHITE BLOOD COUNT 7.7 10^3/uL (4.0-10.0)
[2018-12-30] MEDS ORDERED: MORPHINE 4 MG/ML 1ML VIAL/SYRINGE (J2270) IV ONE (20:15)
[2018-12-30] MEDS ORDERED: ONDANSETRON 4MG/2ML VIAL (J2405) IV ONE (20:15)
[2018-12-30] MEDS ORDERED: NS 1,000 ML IV ONE (20:15)
[2018-12-30 20:20] LABS: ALBUMIN 3.7 GM/DL (3.2-5.2); ALT/SGPT 30 U/L (12-78); BILIRUBIN,DIRECT < 0.1 MG/DL (0.0-0.2); BILIRUBIN,TOTAL 0.4 MG/DL (0.2-1.0); BLOOD UREA NITROGEN 17 MG/DL (7-18); CALCIUM LEVEL 10.3 MG/DL (8.5-10.1); CARBON DIOXIDE LEVEL 26 MEQ/L (21-32); CHLORIDE LEVEL 107 MEQ/L (98-107); CREATININE FOR GFR 0.98 MG/DL (0.55-1.30); GLOMERULAR FILTRATION RATE > 60.0 (>51); GLUCOSE, FASTING 84 MG/DL (70-100); LIPASE 281 U/L (73-393); POTASSIUM SERUM 4.3 MEQ/L (3.5-5.1); SODIUM LEVEL 139 MEQ/L (136-145); TOTAL PROTEIN 7.5 GM/DL (6.4-8.2)
[2018-12-30] MEDS ORDERED: ISOVUE-370 76% 100ML VIAL (Q9967) As Ordered ONE (20:57)
--- NOTE | 2018-12-30 21:50 | REPVR ---
PROCEDURE INFORMATION: Exam: CT Abdomen And Pelvis With Contrast Exam date and time: 12/30/2018 9:11 PM Clinical history: 58 years old, female; Abdominal pain; Localized; Right lower quadrant (rlq); Additional info: Rlq pain TECHNIQUE: Imaging protocol: Computed tomography of the abdomen and pelvis with intravenous contrast. Radiation optimization: All CT scans at this facility use at least one of these dose optimization techniques: automated exposure control; mA and/or kV adjustment per patient size (includes targeted exams where dose is matched to clinical indication); or iterative reconstruction. Contrast material: ISOVUE 370; Contrast volume: 100 ml; Contrast route: IV; COMPARISON: CT ABD/PEL W/IV ORAL CONTRAS 10/25/2018 9:05 AM FINDINGS: Lungs: Minimal bilateral lower lobe dependent atelectasis. Liver: The liver attenuation is 94 Hounsfield units and the spleen is 141 Hounsfield units. Gallbladder and bile ducts: The gallbladder is somewhat contracted with no stones. Pancreas: Normal. No ductal dilation. Spleen: Normal. No splenomegaly. Adrenals: Normal. No mass. Kidneys and ureters: There is a right renal cyst measuring 15 mm. Stomach and bowel: Mild stool in the right colon. The left colon is collapsed with slight wall thickening from the distal transverse colon to the rectum. Appendix: A normal appendix is seen. Intraperitoneal space: Unremarkable. No free air. No significant fluid collection. Vasculature: Unremarkable. No abdominal aortic aneurysm. Lymph nodes: Unremarkable. No enlarged lymph nodes. Bladder: Unremarkable as visualized. Reproductive: Status post hysterectomy. Bones/joints: Unremarkable. No acute fracture. Soft tissues: Unremarkable. IMPRESSION: 1. Minimal nonspecific left colitis from the distal transverse colon the rectum, slightly increased overall since 10/25/2018. 2. Status post hysterectomy. 3. Mild fatty infiltration of the liver. 4. Otherwise negative CT abdomen/pelvis. Electronically signed by: Rc Steve On 12/30/2018 21:50:29 PM
[2018-12-30] MEDS ORDERED: PRED20TA PO (22:44)
[2018-12-30] MEDS ORDERED: methylPREDNISolone INJ 125 MG/2 ML VIAL (J2930) IV ONE (22:45)
[2018-12-30 23:03] VITALS: BP 119/64
== END 2018-12-30 23:23 | disposition home or self-care (01) ==
LOC: M ED 19:13
DX: G89.29 Other chronic pain (principal); R10.9 Unspecified abdominal pain; K51.50 Left sided colitis without complications; F17.200 Nicotine dependence, unspecified, uncomplicated; Z79.82 Long term (current) use of aspirin; Z79.899 Other long term (current) drug therapy; Z88.0 Allergy status to penicillin; Z88.2 Allergy status to sulfonamides; Z88.5 Allergy status to narcotic agent
CPT/HCPCS: 74177; 80048; 80076; 83690; 85025; 96361; 96374; 96375; 99284; J2270; J2405; J2930; Q9967

== ENCOUNTER 2019-12-13 14:53 | Emergency (ER) | payer OTHER ==
[~2019-12-13] VITALS: Ht 162.6 cm; Wt 81.1 kg
[~2019-12-13 14:53] MED LIST changes: -ASPI81TA85 PO; +ASPI81TA86 PO; +CYCL-707 PO; -CYCL10TA PO; +DICY20TA11 PO; +ONDA-83 PO; -ONDA4TAB5 PO; +PRED20TA PO; +PROBCAP14 PO; -SIMV20TA2 PO; +SIMV20TA22 PO
[2019-12-13] MEDS ORDERED: HYDR200T3 (15:02)
[2019-12-13] MEDS ORDERED: ALPR0.5T3 (15:02)
[2019-12-13] MEDS ORDERED: DOXE50CA (15:02)
[2019-12-13] MEDS ORDERED: BENZONATATE 100 MG CAP PO ONE (16:45)
[2019-12-13] MEDS ORDERED: ACETAMINOPHEN 325 MG TAB As Ordered ONE (17:25)
[2019-12-13] MEDS ORDERED: ACETAMINOPHEN 325 MG TAB PO ONE (17:30)
[2019-12-13 17:31] LABS: BASO # 0.1 10^3/uL (0.0-0.2); BASO % 0.8 % (0.0-1.0); EOS # 0.2 10^3/uL (0.0-0.5); EOS % 3.4 % (0.0-3.0); HEMATOCRIT 39.2 % (36.0-47.0); HEMOGLOBIN 12.8 g/dl (12.0-15.5); LYMPH # 1.9 10^3/uL (1.5-5.0); LYMPH % 31.2 % (24.0-44.0); MEAN CORPUSCULAR HEMOGLOBIN 28.5 pg (27.0-33.0); MEAN CORPUSCULAR HGB CONC 32.7 g/dl (32.0-36.5); MEAN CORPUSCULAR VOLUME 87.3 fl (80.0-96.0); MONO # 0.5 10^3/uL (0.0-0.8); MONO % 7.7 % (0.0-5.0); NEUTROPHILS # 3.5 10^3/uL (1.5-8.5); NEUTROPHILS % 56.6 % (36.0-66.0); PLATELET COUNT, AUTOMATED 244 10^3/uL (150-450); RED BLOOD COUNT 4.49 10^6/uL (4.00-5.40); WHITE BLOOD COUNT 6.2 10^3/uL (4.0-10.0)
[2019-12-13 17:44] LABS: BLOOD UREA NITROGEN 14 MG/DL (7-18); CARBON DIOXIDE LEVEL 27 MEQ/L (21-32); CHLORIDE LEVEL 109 MEQ/L (98-107); GLOMERULAR FILTRATION RATE > 60.0 (>45); GLUCOSE, FASTING 83 MG/DL (70-100); SODIUM LEVEL 140 MEQ/L (136-145)
--- NOTE | 2019-12-13 19:02 | REPVR ---
PROCEDURE INFORMATION: Exam: XR Chest, 1 View Exam date and time: 12/13/2019 6:55 PM Age: 59 years old Clinical indication: Shortness of breath; Additional info: Cough, SOB, weakness TECHNIQUE: Imaging protocol: XR of the chest Views: 1 view. COMPARISON: CR Chest, 2 view PA, Lat 05/26/2017 5:01 PM FINDINGS: Lungs: The lung volumes are low. There are linear densities in the left lung base, which may represent atelectasis or scarring. Pleural space: Unremarkable. No pleural effusion or pneumothorax is identified. Heart/Mediastinum: The cardiac silhouette is top normal in size. The mediastinal contours are unremarkable. Bones/joints: Unremarkable. IMPRESSION: No acute findings. Electronically signed by: Kody Ribera On 12/13/2019 19:02:29 PM
[2019-12-13] MEDS ORDERED: MUCI600T31 PO (19:17)
[2019-12-13] MEDS ORDERED: DOXY100C37 PO (19:17)
[2019-12-13] MEDS ORDERED: BENZ200C70 PO (19:17)
[2019-12-13 19:28] VITALS: BP 122/72
== END 2019-12-13 19:58 | disposition home or self-care (01) ==
LOC: M ED 14:53
DX: J20.9 Acute bronchitis, unspecified (principal); B34.8 Other viral infections of unspecified site; J45.909 Unspecified asthma, uncomplicated; F17.200 Nicotine dependence, unspecified, uncomplicated; Z79.82 Long term (current) use of aspirin; Z79.899 Other long term (current) drug therapy; Z88.0 Allergy status to penicillin; Z88.2 Allergy status to sulfonamides; Z88.5 Allergy status to narcotic agent

== ENCOUNTER → 2019-12-19 | Outpatient (REF) | payer OTHER ==
[~2019-12-19] MED LIST changes: +ALPR0.5T3; +BENZ200C70 PO; +DOXE50CA; +DOXY100C37 PO; +HYDR200T3; +MUCI600T31 PO
== END ==
LOC: M SFHCRHEU 09:29
PROVIDERS: ATTEND Internal Medicine
DX: M35.00 Sjogren syndrome, unspecified (principal); R79.89 Other specified abnormal findings of blood chemistry

== ENCOUNTER → 2020-01-27 | Outpatient (CLI) | payer OTHER ==
[2020-01-27 16:23] LABS: BASO # 0.1 10^3/uL (0.0-0.2); BASO % 1.3 % (0.0-1.0); EOS # 0.2 10^3/uL (0.0-0.5); EOS % 1.9 % (0.0-3.0); HEMATOCRIT 41.9 % (36.0-47.0); HEMOGLOBIN 13.8 g/dl (12.0-15.5); LYMPH # 2.8 10^3/uL (1.5-5.0); LYMPH % 32.7 % (24.0-44.0); MEAN CORPUSCULAR HEMOGLOBIN 27.9 pg (27.0-33.0); MEAN CORPUSCULAR HGB CONC 32.9 g/dl (32.0-36.5); MEAN CORPUSCULAR VOLUME 84.8 fl (80.0-96.0); MONO # 0.6 10^3/uL (0.0-0.8); MONO % 7.1 % (0.0-5.0); NEUTROPHILS # 4.8 10^3/uL (1.5-8.5); NEUTROPHILS % 56.6 % (36.0-66.0); PLATELET COUNT, AUTOMATED 275 10^3/uL (150-450); RED BLOOD COUNT 4.94 10^6/uL (4.00-5.40); WHITE BLOOD COUNT 8.5 10^3/uL (4.0-10.0)
[2020-01-27 17:07] LABS: ALBUMIN 3.7 GM/DL (3.2-5.2); BILIRUBIN,TOTAL 0.3 MG/DL (0.2-1.0); C REACTIVE PROTEIN QUANTITATIV 1.06 MG/DL (0.00-0.30); CALCIUM LEVEL 9.3 MG/DL (8.8-10.2); CREATININE FOR GFR 1.1 MG/DL (0.55-1.30); GLOMERULAR FILTRATION RATE 53.9 (>45); POTASSIUM SERUM 4.4 MEQ/L (3.5-5.1); TOTAL PROTEIN 7.6 GM/DL (6.4-8.2)
[2020-01-27 17:10] LABS: ERYTHROCYTE SEDIMENTATION RATE 25 mm/hr (0-30)
== END ==
LOC: M LAB 15:25
PROVIDERS: ATTEND Internal Medicine
DX: M35.00 Sjogren syndrome, unspecified (principal); R79.89 Other specified abnormal findings of blood chemistry

== ENCOUNTER 2020-06-24 15:27 | Emergency (ER) | payer OTHER ==
[~2020-06-24] VITALS: Ht 162.6 cm; Wt 72.7 kg
[2020-06-24] MEDS ORDERED: LIDOCAINE 5% (LIDODERM) PATCH TD ONE (16:50)
[2020-06-24] MEDS ORDERED: ACETAMINOPHEN 500 MG TAB PO ONE (16:50)
--- NOTE | 2020-06-24 16:50 | REP ---
INDICATION: DYSPNEA/COUGH. COMPARISON: 12/13/2019. TECHNIQUE: SINGLE PORTABLE AP VIEW OF THE CHEST WAS PERFORMED. FINDINGS: THERE IS NO ACUTE INFILTRATE OR PULMONARY EDEMA. LUNGS ARE CLEAR. HEART IS NOT SIGNIFICANTLY ENLARGED. MEDIASTINAL SILHOUETTE IS UNREMARKABLE. THE VISUALIZED OSSEOUS STRUCTURES ARE INTACT. IMPRESSION: NO ACUTE PULMONARY DISEASE. <Electronically signed by Meek Gregorio > 06/24/20 [id number]
--- NOTE | 2020-06-24 17:07 | REP ---
INDICATION: edema COMPARISON: None. TECHNIQUE: Real time compression and duplex Doppler interrogation of the bilateral lower extremity deep venous system is performed. FINDINGS: Bilaterally, the common femoral, superficial femoral and popliteal veins are fully compressible with transducer pressure and demonstrate normal spontaneous and phasic flow, without evidence of deep venous thrombosis. IMPRESSION: No evidence of deep venous thrombosis of the bilateral lower extremity femoral popliteal venous system. <Electronically signed by Meek Gregorio > 06/24/20 [id number]
[2020-06-24 17:19] LABS: VENOUS HCO3 23.8 MEQ/L (23.0-27.0); VENOUS O2 SATURATION 78.9 % (60.0-80.0); VENOUS PARTIAL PRESSURE CO2 44.9 mmHg (38.0-50.0); VENOUS PARTIAL PRESSURE O2 41.8 mmHg (30.0-50.0); VENOUS PH 7.343 UNITS (7.330-7.430); VENOUS STANDARD HCO3 22.4 MEQ/L; VENOUS TOTAL CO2 25.2 MEQ/L (24.0-28.0)
[2020-06-24] MEDS ORDERED: HYDR-3363 PO (17:35)
[2020-06-24] MEDS ORDERED: CITA20TA7 PO (17:35)
[2020-06-24] MEDS ORDERED: GABA-282 PO (17:35)
[2020-06-24 17:38] LABS: BASO # 0.1 10^3/uL (0.0-0.2); BASO % 1.2 % (0.0-1.0); EOS # 0.3 10^3/uL (0.0-0.5); EOS % 4.8 % (0.0-3.0); HEMATOCRIT 37.6 % (36.0-47.0); LYMPH # 2.4 10^3/uL (1.5-5.0); LYMPH % 36.7 % (24.0-44.0); MEAN CORPUSCULAR HEMOGLOBIN 27.6 pg (27.0-33.0); MEAN CORPUSCULAR HGB CONC 31.9 g/dl (32.0-36.5); MEAN CORPUSCULAR VOLUME 86.4 fl (80.0-96.0); MONO # 0.5 10^3/uL (0.0-0.8); MONO % 7.8 % (2.0-8.0); NEUTROPHILS # 3.3 10^3/uL (1.5-8.5); NEUTROPHILS % 49.2 % (36.0-66.0); PLATELET COUNT, AUTOMATED 246 10^3/uL (150-450); RED BLOOD COUNT 4.35 10^6/uL (4.00-5.40); WHITE BLOOD COUNT 6.6 10^3/uL (4.0-10.0)
[2020-06-24 17:57] LABS: ALBUMIN 3.3 GM/DL (3.2-5.2); ALT/SGPT 44 U/L (12-78); BILIRUBIN,DIRECT < 0.1 MG/DL (0.0-0.2); BILIRUBIN,TOTAL 0.2 MG/DL (0.2-1.0); LIPASE 130 U/L (73-393); THYROXINE (T4) 10.3 UG/DL (4.5-12.0); TOTAL PROTEIN 6.7 GM/DL (6.4-8.2)
[2020-06-24] MEDS ORDERED: KETOROLAC 30 MG/ML 1ML VIAL IV ONE (18:25)
[2020-06-24 19:12] VITALS: BP 121/63
[2020-06-24] MEDS ORDERED: **NOTE PATIENT COMMENT** MISC XX SCH (21:00)
--- NOTE | 2020-06-25 06:29 | ECGEPIP ---
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
== END 2020-06-24 19:13 | disposition home or self-care (01) ==
LOC: M ED 15:27
DX: R22.43 Localized swelling, mass and lump, lower limb, bilateral (principal); R06.00 Dyspnea, unspecified; J45.909 Unspecified asthma, uncomplicated; J44.9 Chronic obstructive pulmonary disease, unspecified; M32.9 Systemic lupus erythematosus, unspecified; M19.90 Unspecified osteoarthritis, unspecified site; F41.9 Anxiety disorder, unspecified; F32.9 Major depressive disorder, single episode, unspecified; M35.00 Sjogren syndrome, unspecified; F17.200 Nicotine dependence, unspecified, uncomplicated; Z88.0 Allergy status to penicillin; Z88.2 Allergy status to sulfonamides; Z88.5 Allergy status to narcotic agent
CPT/HCPCS: 36415; 71045; 80047; 80076; 82803; 83690; 84436; 84443; 85025; 85379; 93005; 93041; 93970; 96374; 99284; J1885

== ENCOUNTER 2020-09-15 05:07 | Emergency (ER) | payer OTHER ==
[~2020-09-15] VITALS: Ht 160 cm; Wt 80.0 kg
[~2020-09-15 05:07] MED LIST changes: +CITA20TA7 PO; -DOXY100C37 PO; +DOXY1CAP62 PO; +GABA-282 PO; +HYDR-3363 PO
[2020-09-15] MEDS ORDERED: PROMETHAZINE INJ 25 MG/ML VIAL (J2550) IV ONE (06:35)
[2020-09-15] MEDS ORDERED: ACETAMINOPHEN 500 MG TAB PO ONE (06:35)
[2020-09-15] MEDS ORDERED: NS 1,000 ML IV ONE (07:35)
--- NOTE | 2020-09-15 07:41 | ECGEPIP ---
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
[2020-09-15 08:13] LABS: BASO # 0.1 10^3/uL (0.0-0.2); BASO % 0.8 % (0.0-1.0); EOS # 0.1 10^3/uL (0.0-0.5); EOS % 1.2 % (0.0-3.0); HEMATOCRIT 42.2 % (36.0-47.0); HEMOGLOBIN 13.7 g/dl (12.0-15.5); LYMPH # 1.6 10^3/uL (1.5-5.0); LYMPH % 19.1 % (24.0-44.0); MEAN CORPUSCULAR HEMOGLOBIN 28.2 pg (27.0-33.0); MEAN CORPUSCULAR HGB CONC 32.5 g/dl (32.0-36.5); MONO # 0.4 10^3/uL (0.0-0.8); MONO % 4.8 % (2.0-8.0); NEUTROPHILS # 6.3 10^3/uL (1.5-8.5); NEUTROPHILS % 73.7 % (36.0-66.0); PLATELET COUNT, AUTOMATED 206 10^3/uL (150-450); RED BLOOD COUNT 4.85 10^6/uL (4.00-5.40); WHITE BLOOD COUNT 8.5 10^3/uL (4.0-10.0)
[2020-09-15 08:38] LABS: ALBUMIN 3.4 GM/DL (3.2-5.2); ALT/SGPT 15 U/L (12-78); BILIRUBIN,DIRECT < 0.1 MG/DL (0.0-0.2); BILIRUBIN,TOTAL 0.2 MG/DL (0.2-1.0); BLOOD UREA NITROGEN 16 MG/DL (7-18); CALCIUM LEVEL 8.9 MG/DL (8.8-10.2); CARBON DIOXIDE LEVEL 24 MEQ/L (21-32); CHLORIDE LEVEL 110 MEQ/L (98-107); CK-MB VALUE MASS < 1.0 NG/ML (<3.6); CPK CREATINE PHOSPHOKINASE 75 U/L (26-192); CREATININE FOR GFR 0.95 MG/DL (0.55-1.30); GLOMERULAR FILTRATION RATE > 60.0 (>45); GLUCOSE, FASTING 88 MG/DL (70-100); LIPASE 92 U/L (73-393); MB/CK RELATIVE INDEX 1.33 (< OR =4); POTASSIUM SERUM 4.3 MEQ/L (3.5-5.1); SODIUM LEVEL 142 MEQ/L (136-145); TOTAL PROTEIN 6.9 GM/DL (6.4-8.2); TROPONIN I < 0.02 NG/ML (< 0.10)
[2020-09-15] MEDS ORDERED: GASTROGRAFIN SOLUTION 30ML (Q9963) As Ordered ONE (08:43)
--- NOTE | 2020-09-15 08:46 | REPVR ---
PROCEDURE INFORMATION: Exam: US Abdomen, Limited; Right Upper Quadrant Exam date and time: 09/15/2020 7:45 AM Age: 60 years old Clinical indication: Abdominal pain; Acute; Additional info: Ruq pain TECHNIQUE: Imaging protocol: US abdomen. Real time ultrasound with image documentation. Limited exam focused on the right upper quadrant. COMPARISON: GALLBLADDER US 07/12/2018 8:28 AM FINDINGS: Liver: No focal hepatic mass. Gallbladder: Ring down artifact in the gallbladder. No reproducible cholelithiasis, gallbladder wall edema, or pericholecystic fluid. Common bile duct: Normal caliber of the incompletely visualized common bile duct measuring 4 mm in diameter. Pancreas: Obscuration of the pancreas by bowel gas. Right kidney: Normal right renal morphology. No hydronephrosis. IMPRESSION: No significant sonographic abnormality in the visualized right upper quadrant. Electronically signed by: Kev Hart On 09/15/2020 08:45:31 AM
--- NOTE | 2020-09-15 08:47 | REPVR ---
PROCEDURE INFORMATION: Exam: XR Complete Acute Abdomen Series Including Chest Exam date and time: 09/15/2020 6:56 AM Age: 60 years old Clinical indication: Other: Abd pain; Additional info: Abdominal pain TECHNIQUE: Imaging protocol: XR complete acute abdomen series, including 2 or more views of the abdomen and a single view chest. COMPARISON: [place] PORTABLE CHEST X-RAY 06/24/2020 4:09 PM FINDINGS: Lungs: Emphysematous change and mild interstitial prominence. Pleural spaces: No pleural effusion. Heart/Mediastinum: Epicardial fat, without cardiomegaly. Gastrointestinal tract: Prominent stool, without bowel dilatation. Intraperitoneal space: No free air. Bones/joints: Mild degenerative change. IMPRESSION: 1. Emphysematous change and mild interstitial prominence. 2. Prominent stool, without bowel dilatation. Electronically signed by: Kev Hart On 09/15/2020 08:47:09 AM
[2020-09-15] MEDS: GASTROGRAFIN SOLUTION 30ML PO SCH ×2 (08:52→09:24)
[2020-09-15] MEDS ORDERED: ISOVUE-370 76% 100ML VIAL As Ordered ONE (10:17)
--- NOTE | 2020-09-15 11:06 | REP ---
INDICATION: R sided abd pain, h/o colitis, diverticulitis. COMPARISON: 12/30/2018 TECHNIQUE: Axial contrast-enhanced images from the lung bases to the pubic symphysis using oral and 100 cc Isovue 370 intravenous contrast material. Coronal and sagittal reformations obtained. This CT examination was performed using the following dose reduction techniques: Automated exposure control, adjustment of mA and/or kv according to the patient's size, and the use of iterative reconstruction technique. FINDINGS: Lung bases demonstrate very minimal dependent changes. Visualized heart and pericardium appear normal. Liver, spleen, pancreas, gallbladder, bilateral adrenal glands and kidneys are normal. The enteric system including stomach, small, and large bowel appears normal. No evidence for obstruction or acute inflammatory process. Normal terminal ileum and appendix are identified in the right lower quadrant. Pelvis demonstrates normal bladder and prior hysterectomy. Distal descending through rectosigmoid colon demonstrates scattered diverticula without acute diverticulitis. No ascites. No free air. No intraperitoneal or retroperitoneal adenopathy. Abdominal aorta and vasculature appear normal. Musculoskeletal structures are intact and without acute osseous abnormality. IMPRESSION: No acute abdominopelvic pathology appreciated. <Electronically signed by Braeden Murcia > 09/15/20 1104
[2020-09-15 13:17] VITALS: BP 118/59
[2020-09-15] MEDS ORDERED: MIRA3350 PO (13:21)
== END 2020-09-15 13:26 | disposition home or self-care (01) ==
LOC: M ED 05:07
DX: K58.9 Irritable bowel syndrome, unspecified (principal); K59.00 Constipation, unspecified; R10.9 Unspecified abdominal pain; R11.2 Nausea with vomiting, unspecified; E66.9 Obesity, unspecified; K27.9 Peptic ulcer, site unspecified, unspecified as acute or chronic, without hemorrhage or perforation; Z87.448 Personal history of other diseases of urinary system; K21.9 Gastro-esophageal reflux disease without esophagitis; K57.32 Diverticulitis of large intestine without perforation or abscess without bleeding; E78.5 Hyperlipidemia, unspecified; E03.9 Hypothyroidism, unspecified; R56.9 Unspecified convulsions; J45.909 Unspecified asthma, uncomplicated; M54.9 Dorsalgia, unspecified; M32.9 Systemic lupus erythematosus, unspecified; F32.9 Major depressive disorder, single episode, unspecified; F41.9 Anxiety disorder, unspecified; M35.00 Sjogren syndrome, unspecified; Z91.5 Personal history of self-harm; F17.200 Nicotine dependence, unspecified, uncomplicated; Z79.82 Long term (current) use of aspirin; Z79.899 Other long term (current) drug therapy; Z88.0 Allergy status to penicillin; Z88.2 Allergy status to sulfonamides; Z88.5 Allergy status to narcotic agent
CPT/HCPCS: 36415; 74021; 74177; 76705; 80048; 80076; 81001; 82550; 82553; 83605; 83690; 85025; 93005; 93041; 96361; 96374; 99285; Q9967

== ENCOUNTER → 2020-10-15 | Outpatient (REF) | payer OTHER ==
[~2020-10-15] MED LIST changes: -DICY20TA11 PO; +DICY20TA20 PO; +DOXY-443 PO; -DOXY1CAP62 PO; +MIRA3350 PO
[2020-10-15 17:53] LABS: APPEARANCE, URINE HAZY (CLEAR); BACTERIA, URINE AUTO 2+ (NEGATIVE); BILIRUBIN, URINE AUTO NEGATIVE (NEGATIVE); BLOOD, URINE BLOOD NEGATIVE (NEGATIVE); COLOR, URINE YELLOW (YELLOW); GLUCOSE, URINE (UA) AUTO NEGATIVE (NEGATIVE); KETONE, URINE AUTO NEGATIVE (NEGATIVE); LEUKOCYTE ESTERASE, URINE AUTO NEGATIVE (NEGATIVE); NITRITE, URINE AUTO NEGATIVE (NEGATIVE); PROTEIN, URINE AUTO NEGATIVE (NEGATIVE); RBC, URINE AUTO 0 /HPF (0-3); SPECIFIC GRAVITY URINE AUTO 1.017 (1.002-1.035); SQUAMOUS EPITHELIAL CELL UR AU 7 /HPF (0-6); UROBILINOGEN, URINE AUTO 0.2 mg/dL (0.0-2.0); WBC, URINE AUTO 2 /HPF (0-3)
[2020-10-15 18:00] LABS: BASO # 0.1 10^3/uL (0.0-0.2); BASO % 0.8 % (0.0-1.0); EOS # 0.3 10^3/uL (0.0-0.5); EOS % 2.2 % (0.0-3.0); HEMOGLOBIN 14.8 g/dl (12.0-15.5); LYMPH # 2.4 10^3/uL (1.5-5.0); LYMPH % 21.1 % (24.0-44.0); MEAN CORPUSCULAR HEMOGLOBIN 28.5 pg (27.0-33.0); MEAN CORPUSCULAR HGB CONC 32.9 g/dl (32.0-36.5); MEAN CORPUSCULAR VOLUME 86.5 fl (80.0-96.0); MONO # 0.5 10^3/uL (0.0-0.8); MONO % 4.3 % (2.0-8.0); NEUTROPHILS # 8.2 10^3/uL (1.5-8.5); NEUTROPHILS % 71.2 % (36.0-66.0); PLATELET COUNT, AUTOMATED 267 10^3/uL (150-450); WHITE BLOOD COUNT 11.5 10^3/uL (4.0-10.0)
[2020-10-15 18:08] LABS: ALBUMIN 3.9 GM/DL (3.2-5.2); ALT/SGPT 21 U/L (12-78); BILIRUBIN,DIRECT < 0.1 MG/DL (0.0-0.2); BILIRUBIN,TOTAL 0.2 MG/DL (0.2-1.0); BLOOD UREA NITROGEN 17 MG/DL (7-18); C REACTIVE PROTEIN QUANTITATIV 1.49 MG/DL (0.00-0.30); CALCIUM LEVEL 9.6 MG/DL (8.8-10.2); CARBON DIOXIDE LEVEL 31 MEQ/L (21-32); CHLORIDE LEVEL 103 MEQ/L (98-107); COMPLEMENT C3 157 MG/DL (90-180); COMPLEMENT C4 41 MG/DL (10-40); CREATININE FOR GFR 1.09 MG/DL (0.55-1.30); GLOMERULAR FILTRATION RATE 54.3 (>45); GLUCOSE, FASTING 112 MG/DL (70-100); IMMUNOGLOBULIN G 1160 MG/DL (681-1648); IMMUNOGLOBULIN M 36.3 MG/DL (40-230); POTASSIUM SERUM 3.5 MEQ/L (3.5-5.1); RHEUMATOID FACTOR QUANT < 10.0 IU/ML (<15.0); SODIUM LEVEL 139 MEQ/L (136-145); TOTAL PROTEIN 7.6 GM/DL (6.4-8.2)
[2020-10-15 19:22] LABS: ERYTHROCYTE SEDIMENTATION RATE 17 mm/hr (0-30)
[2020-10-16 12:44] LABS: ALBUMIN 4.27 GM/DL (3.29-5.55); ALBUMIN % 56.2 % (55.8-66.1); ALPHA-1-GLOBULIN % 4.4 % (2.9-4.9); ALPHA-1-GLOBULINS 0.33 GM/DL (0.17-0.41); ALPHA-2-GLOBULINS 1.01 GM/DL (0.42-0.99); ALPHA-2-GLOBULINS % 13.3 % (7.1-11.8); BETA-1-GLOBULINS 0.42 GM/DL (0.28-0.60); BETA-1-GLOBULINS % 5.5 % (4.7-7.2); BETA-2-GLOBULINS 0.47 GM/DL (0.19-0.55); BETA-2-GLOBULINS % 6.2 % (3.2-6.5); GAMMA GLOBULIN % 14.4 % (11.1-18.8); GAMMA GLOBULINS 1.09 GM/DL (0.65-1.58)
[2020-10-17 21:08] LABS: ANA (HEP2) Positive (.); COMPLEMENT TOTAL (CH50) > 60 U/mL (>41); SSA SJOGRENS A >8.0 AI (0.0-0.9); SSB SJOGRENS B <0.2 AI (0.0-0.9)
== END ==
LOC: M SFHCRHEU 11:04
PROVIDERS: ATTEND Internal Medicine
DX: M35.01 Sjogren syndrome with keratoconjunctivitis (principal); R79.89 Other specified abnormal findings of blood chemistry
CPT/HCPCS: 80048; 80076; 81001; 82570; 82784; 84165; 85025; 85652; 86038; 86140; 86160; 86162; 86235; 86431; G0480

== ENCOUNTER → 2021-03-20 | Outpatient (REF) ==
[~2021-03-20] MED LIST changes: +DICY20TA11 PO; -DICY20TA20 PO
== END ==
LOC: M LABSMTC 13:23
PROVIDERS: ATTEND Pediatrics
DX: Z11.52 Encounter for screening for COVID-19 (principal)

== ENCOUNTER → 2021-11-29 | Outpatient (CLI) | payer OTHER ==
[~2021-11-29] MED LIST changes: -DICY20TA11 PO; +DICY20TA20 PO; +SIMV-253 PO; -ZOCO20TA PO
== END ==
LOC: M SOG 08:10
PROVIDERS: ATTEND Physician Assistant
DX: S92.351A Displaced fracture of fifth metatarsal bone, right foot, initial encounter for closed fracture (principal); M77.31 Calcaneal spur, right foot; X58.XXXA Exposure to other specified factors, initial encounter; Y92.9 Unspecified place or not applicable; Y93.9 Activity, unspecified; Y99.9 Unspecified external cause status

== ENCOUNTER → 2021-12-30 | Outpatient (CLI) | payer OTHER | LOC: M SOG 10:39 | PROVIDERS: ATTEND Orthopaedic Surgery Hand Surgery | DX: S92.351A Displaced fracture of fifth metatarsal bone, right foot, initial encounter for closed fracture (principal); M77.31 Calcaneal spur, right foot; X58.XXXA Exposure to other specified factors, initial encounter; Y92.9 Unspecified place or not applicable; Y93.9 Activity, unspecified; Y99.9 Unspecified external cause status ==

== ENCOUNTER → 2022-02-03 | Outpatient (CLI) | payer OTHER | LOC: M SOG 11:26 | PROVIDERS: ATTEND Physician Assistant | DX: S92.351A Displaced fracture of fifth metatarsal bone, right foot, initial encounter for closed fracture (principal); M19.071 Primary osteoarthritis, right ankle and foot; X58.XXXA Exposure to other specified factors, initial encounter; Y92.9 Unspecified place or not applicable; Y93.9 Activity, unspecified; Y99.9 Unspecified external cause status; M77.31 Calcaneal spur, right foot ==

== ENCOUNTER 2022-06-11 14:18 | Emergency (ER) | payer OTHER ==
[~2022-06-11] VITALS: Ht 160 cm; Wt 72.2 kg
[2022-06-11] MEDS ORDERED: MIDO2.5T (14:31)
[2022-06-11] MEDS ORDERED: ZOLP10TA2 (14:31)
[2022-06-11] MEDS ORDERED: BUSP15TA47 (14:31)
[2022-06-11] MEDS ORDERED: NS 1,000 ML IV ONE (14:55)
[2022-06-11] MEDS ORDERED: METOCLOPRAMIDE INJ 10MG/2ML VIAL IV ONE (14:55)
[2022-06-11] MEDS ORDERED: HYDROMORPHONE HCL 0.5 MG/ 0.5 ML SYRINGE IV ONE (14:55)
[2022-06-11 15:41] LABS: BASO # 0.1 10^3/uL (0.0-0.2); BASO % 0.9 % (0.0-1.0); EOS # 0.3 10^3/uL (0.0-0.5); EOS % 3.1 % (0.0-3.0); HEMATOCRIT 38.1 % (36.0-47.0); HEMOGLOBIN 12.4 g/dl (12.0-15.5); LYMPH % 22.4 % (24.0-44.0); MEAN CORPUSCULAR HGB CONC 32.5 g/dl (32.0-36.5); MONO # 0.5 10^3/uL (0.0-0.8); MONO % 5.8 % (2.0-8.0); NEUTROPHILS # 6.1 10^3/uL (1.5-8.5); NEUTROPHILS % 67.5 % (36.0-66.0); PLATELET COUNT, AUTOMATED 257 10^3/uL (150-450); RED BLOOD COUNT 4.28 10^6/uL (4.00-5.40); WHITE BLOOD COUNT 9.1 10^3/uL (4.0-10.0)
[2022-06-11 15:50] LABS: LIPASE 44 U/L (12-53)
[2022-06-11 15:52] LABS: ALBUMIN 3.4 G/DL (3.2-5.2); ALKALINE PHOSPHATASE 96 U/L (46-116); ALT/SGPT 15 U/L (7.0-40); AST/SGOT 15 U/L (<34); BILIRUBIN,DIRECT < 0.1 MG/DL (<0.4); BILIRUBIN,TOTAL 0.2 MG/DL (0.3-1.2); CK-MB VALUE MASS < 1.0 NG/ML (<3.6); TOTAL PROTEIN 6.6 G/DL (5.7-8.2)
[2022-06-11 15:53] LABS: CPK CREATINE PHOSPHOKINASE 44 U/L (34-145); MB/CK RELATIVE INDEX 2.27 (< OR =4)
[2022-06-11] MEDS ORDERED: ISOVUE-370 76% 100ML VIAL As Ordered ONE (16:23)
[2022-06-11 16:54] LABS: CK-MB VALUE MASS < 1.0 NG/ML (<3.6)
[2022-06-11 16:55] LABS: CPK CREATINE PHOSPHOKINASE 40 U/L (34-145)
[2022-06-11 17:30] VITALS: BP 121/64
[2022-06-11] MEDS ORDERED: GI COCKTAIL 50ML BTL(HYOSCYAMINE/MAALOX/LIDOCAINE VISCOUS)(1:3:1) PO ONE (18:10)
[2022-06-11] MEDS ORDERED: CARA1TAB6 PO (18:50)
[2022-06-11] MEDS ORDERED: PROT1TAB2 PO (18:50)
== END 2022-06-11 19:44 | disposition home or self-care (01) ==
LOC: M ED 14:18
DX: K27.9 Peptic ulcer, site unspecified, unspecified as acute or chronic, without hemorrhage or perforation (principal); E78.5 Hyperlipidemia, unspecified; K21.9 Gastro-esophageal reflux disease without esophagitis; K57.92 Diverticulitis of intestine, part unspecified, without perforation or abscess without bleeding; Z87.19 Personal history of other diseases of the digestive system; Z79.899 Other long term (current) drug therapy; Z88.0 Allergy status to penicillin; Z88.2 Allergy status to sulfonamides; Z88.5 Allergy status to narcotic agent
CPT/HCPCS: 74177; 80047; 80076; 82550; 82553; 83690; 85025; 93005; 93041; 96374; 96375; 99285; J1170; J2765; Q9967